=== PATIENT | female | born 1970 | race Caucasian/White ===

== ENCOUNTER 2023-08-09 05:21 | Observation (INO) ==
--- NOTE | 2023-07-12 12:04 | PAT Medication Instructions ---
Medication Instructions Date of Service July 12, 2023 Home Medications folic acid 1 mg tablet 1 mg PO QAM pyridoxine (vitamin B6) 50 mg tablet 50 mg PO QAM buspirone 10 mg tablet 10 mg PO BID conjugated estrogens 1.25 mg tablet (Premarin) 1.25 mg PO QPM cyanocobalamin (vitamin B-12) 1,000 mcg tablet (Vitamin B-12) 1,000 mcg PO WK multivitamin 1 tab PO QAM omeprazole 40 mg capsule,delayed release 40 mg PO BID sertraline 50 mg tablet 50 mg PO QAM potassium 99 mg tablet 99 mg PO BID zinc 1 tab PO BID ASK your prescriber and surgeon conjugated estrogens 1.25 mg tablet (Premarin) 1.25 mg PO QPM DO NOT take the morning of surgery folic acid 1 mg tablet 1 mg PO QAM pyridoxine (vitamin B6) 50 mg tablet 50 mg PO QAM cyanocobalamin (vitamin B-12) 1,000 mcg tablet (Vitamin B-12) 1,000 mcg PO WK multivitamin 1 tab PO QAM potassium 99 mg tablet 99 mg PO BID zinc 1 tab PO BID Take morning of surgery With a small sip of water, OTHERWISE NOTHING TO EAT OR DRINK AFTER MIDNIGHT: buspirone 10 mg tablet 10 mg PO BID omeprazole 40 mg capsule,delayed release 40 mg PO BID sertraline 50 mg tablet 50 mg PO QAM Take evening before surgery buspirone 10 mg tablet 10 mg PO BID omeprazole 40 mg capsule,delayed release 40 mg PO BID potassium 99 mg tablet 99 mg PO BID zinc 1 tab PO BID Other Notes If you have any questions please call us at [phone] or [phone] or [phone] or [phone]
--- NOTE | 2023-07-13 09:54 | Anesthesiology Consultation ---
Date of Service July 13, 2023 Assessment & Plan (1) Encounter for pre-operative examination: Chart Review Chart Review: Acceptable Risk for Surgery (pending heme visit 07/17/23 and PCP clearance 07/20/23) and Patient seen in Pre Admission Testing - [facility]waiting [facility]onc appt 07/17/23 - Awaiting PCP clearance (Dr. Rodas) 07/20/23 - Patient is NOT an ideal OPJ candidate (currently 23 hour obs) Per PAT appt on 07/13/23, no recent illness/disease exposures, illness related symptoms, or recent illness/disease positive tests. Will leave to surgeon's discretion if preop Covid testing needed Right TKA from uni-knee 05/01/18= Done under SAB at L3-4 with two attempts History Surgery Operation Date: 08/09/23 07:00 Proposed Procedures p Left Total Knee Arthroplasty - Micky Fink MD Height/Weight Height: 5 ft 2 in Weight: 72.5 kg Allergies Allergy/AdvReac Type Severity Reaction Status Date / Time trazodone Allergy Intermediate congestion Verified 07/12/23 10:17 desmopressin Allergy Mild THROAT Verified 07/12/23 10:17 SWELLS AND REDNESS - TOLERATES W/ BENADRYL Medications Home Medications Medication Instructions Recorded Confirmed Last Taken folic acid 1 mg tablet 1 mg PO QAM 05/02/22 07/12/23 04/29/23 pyridoxine (vitamin B6) 50 mg 50 mg PO QAM 05/02/22 07/12/23 04/29/23 tablet buspirone 10 mg tablet 10 mg PO BID 05/01/23 07/12/23 04/29/23 conjugated estrogens 1.25 mg 1.25 mg PO QPM 05/01/23 07/12/23 04/29/23 tablet (Premarin) cyanocobalamin (vitamin B-12) 1,000 mcg PO WK 05/01/23 07/12/23 04/29/23 1,000 mcg tablet (Vitamin B-12) multivitamin 1 tab PO QAM 05/01/23 07/12/23 04/29/23 omeprazole 40 mg capsule,delayed 40 mg PO BID 05/01/23 07/12/23 04/29/23 release sertraline 50 mg tablet 50 mg PO QAM 05/01/23 07/12/2323 potassium 99 mg tablet 99 mg PO BID 05/04/23 07/12/23 Unknown zinc 1 tab PO BID 05/04/23 07/12/23 Unknown Past Medical History Medical History Anemia Following with [facility] heme Last transfusion 06/18/23 Getting current iron infusions Anxiety Chronic pain History of COVID-19 2020, 2021 - symptoms fully resolved History of gastric ulcer 2020 or 2021 Osteoarthritis SBO (small bowel obstruction) hx of x 3 total, 05/01/23 [place] [facility] --> transferred to [place] for surgery. Thrombocytosis Will be following with [facility] heme 07/17/23 to discuss further Exercise / Class Metabolic Activity II 4-5 Yardwork/Stairs/Walk up hill (one flight of stairs - no chest pain or SOB ) Past Family History Family History Grandmother (Maternal) Breast cancer Grandfather (Maternal) Cancer Mother Clotting disorder Diabetes Sister Clotting disorder Other No pertinent family history Past Surgical History Surgical History H/O dilation and curettage H/O resection of small bowel x3. Most recent 05/02/23 SBO. 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 History of bunionectomy left great toe History of cholecystectomy History of colonoscopy History of esophagogastroduodenoscopy (EGD) History of partial knee replacement right History of repair of hiatal hernia History of tonsillectomy and adenoidectomy 1975 History of total knee replacement right > after the partial went bad Hx of gastric bypass [facility] - 2011 Hx of sigmoidoscopy Status post total abdominal hysterectomy 2004 Past Anesthesia History No Hx of Anesthesia Complications and No Family Hx of Anesthesia Complications History of PONV No Hx of PONV and Hx of Motion Sickness Social History Smoking Status: Never smoker Do You Dip or Chew Tobacco: No Hx Alcohol Use: Yes alcohol intake frequency: holidays/special occasions only Hx Substance Use: No substance use type: does not use Review of Systems - Most recent blood transfusion (06/18/23) Patient denies chest pain, shortness of breath, dyspnea on exertion, reflux, cough, wheezing, palpitations. No hx of seizures, stroke, DE, apnea/snoring. No hx of blood clots Physical Exam Vital Signs VITALS BP 118/76 P 69 TEMP 97.7 SP02 96% RESP 16 Constitutional no acute distress ENMT Mouth: no TMJ clicking Thyromental Distance: > or= 3.5 Finger Breadths (3.5) Mallampati Class: I Crowns to side teeth/molars Neck neck extension not limited Respiratory normal respiratory effort; no respiratory distress Auscultation: lungs clear to auscultation bilaterally; no wheezes Cardiovascular Rate/Rhythm: regular rate and regular rhythm Heart Sounds: no murmur Vessels: no carotid bruit Musculoskeletal Spine: no pain with cervical ROM Extremities: extremities normal to inspection Psychiatric Orientation: alert Lab Results Anesthesia Preop Results Results Anesthesia Widget: Na 136 mmol/L (136-145) 07/13/23 K 4.4 mmol/L (3.5-5.1) 07/13/23 Cl 103 mmol/L (98-107) 07/13/23 CO2 28 mmol/L (21-32) 07/13/23 BUN 13 mg/dl (6-23) 07/13/23 Creat 0.55 mg/dl (0.6-1.2) L 07/13/23 Glucose Level 83 mg/dl (70-99(Fasting)) 07/13/23 PT 10.3 Seconds (9.0-12.0) 07/13/23 PTT 26 Seconds (21-31) 07/13/23 INR 0.9 (0.9-1.1) 07/13/23 Urine Color Yellow 07/13/23 Urine Appearance Clear (Clear) 07/13/23 Urine pH 6.5 (4.5-7.5) 07/13/23 Urine Specific [place] 1.034 (1.000-1.030) H 07/13/23 Urine Protein Negative (Negative) 07/13/23 Urine Glucose (UA) Negative (Negative) 07/13/23 Urine Ketones Negative (Negative) 07/13/23 Urine Blood Negative (Negative) 07/13/23 Urine Nitrite Negative (Negative) 07/13/23 Urine Bilirubin Negative (Negative) 07/13/23 Urine Urobilinogen Negative (Negative) 07/13/23 Urine Leukocyte Esterase Negative (Negative) 07/13/23 Blood Type B Positive 07/13/23 Antibody Screen NEGATIVE 07/13/23 Testing Laboratory Results 07/10/23= WBC: 8.61 H/H: 11.3/38.1 PLATELETS: 749 (following with [facility] heme 07/17/23 to discuss thrombocytosis along with anemia) Electrocardiogram Date: 04/30/23 Findings: + NSR @ (69bpm) High QRS voltage may be normal variant or due to LVE When compared to EKG from November 05, 2022- no significant change was found per cardio Chest X-Ray Date: 07/13/23 FINDINGS: Lung volumes are normal. Lungs are clear. The hazy left upper lobe density on radiograph of May 01, 2023 has resolved. There is no pneumothorax or pleural effusion. Cardiac size is normal. Mediastinal contours are normal. There is no evidence for pulmonary edema. IMPRESSION: No acute cardiopulmonary findings.
--- NOTE | 2023-08-08 07:07 | History & Physical Report ---
Date of Service August 08, 2023 Assessment & Plan (1) Primary osteoarthritis of left knee: Plan: Treatment options discussed with the patient. They wish to proceed with surgery. Risks, benefits and alternatives to surgery including but not limited to infection, DVT, pain, stiffness, need for revision surgery, damage to blood vessels, damage to nerves, PE, , were discussed with the patient and they wish to proceed. Plan for left total knee arthroplasty scheduled for August 08 at [facility] with Dr. Fink. Plan on aspirin 81 mg twice daily for 1 month postop for DVT prophylaxis. Plan on outpatient physical therapy. All questions answered. Patient follow-up postop. History of Present Illness Chief Complaint: Left knee pain Primary Care Provider: Jeremiah Rodas DO 52-year-old female with past medical history significant for small bowel obstruction who presents with ongoing left knee pain. Pain is interfering with her daily activities. She has failed conservative measures and would like to proceed with knee replacement. She does have a previous right knee replacement. Patient denies headaches, sweats, fevers, chills, double vision, blurred vision, cough, sore throat, dysphagia, chest pain, sob, wheezing, n/v/d/c, numbness, tingling, fatigue, urinary symptoms, mood disorders. ROS positive for left knee pain and stiffness. Allergies Allergy/AdvReac Type Severity Reaction Status Date / Time trazodone Allergy Intermediate congestion Verified 07/12/23 10:17 desmopressin Allergy Mild THROAT Verified 07/12/23 10:17 SWELLS AND REDNESS - TOLERATES W/ BENADRYL Home Medications Medication Instructions Recorded Confirmed Type folic acid 1 mg tablet 1 mg PO QAM 05/02/22 07/12/23 History pyridoxine (vitamin B6) 50 mg 50 mg PO QAM 05/02/22 07/12/23 History tablet buspirone 10 mg tablet 10 mg PO BID 05/01/23 07/12/23 History conjugated estrogens 1.25 mg 1.25 mg PO QPM 05/01/23 07/12/23 History tablet (Premarin) cyanocobalamin (vitamin B-12) 1,000 mcg PO WK 05/01/23 07/12/23 History 1,000 mcg tablet (Vitamin B-12) multivitamin 1 tab PO QAM 05/01/23 07/12/23 History omeprazole 40 mg capsule,delayed 40 mg PO BID 05/01/23 07/12/23 History release sertraline 50 mg tablet 50 mg PO QAM 05/01/23 07/12/23 History potassium 99 mg tablet 99 mg PO BID 05/04/23 07/12/23 History zinc 1 tab PO BID 05/04/23 07/12/23 History Past Med/Surg History Medical History Anemia Following with [facility] Last transfusion 06/18/23 Getting current iron infusions Anxiety Chronic pain History of COVID-19 2020, 2021 - symptoms fully resolved History of gastric ulcer 2020 or 2021 Osteoarthritis SBO (small bowel obstruction) hx of x 3 total, 05/01/23 [place] [facility] --> transferred to [place] for surgery. Thrombocytosis Will be following with [facility] heme 07/17/23 to discuss further Surgical History H/O dilation and curettage H/O resection of small bowel x3. Most recent 05/02/23 SBO. 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 History of bunionectomy left great toe History of cholecystectomy History of colonoscopy History of esophagogastroduodenoscopy (EGD) History of partial knee replacement right History of repair of hiatal hernia History of tonsillectomy and adenoidectomy 1975 History of total knee replacement right > after the partial went bad Hx of gastric bypass [facility] - 2011 Hx of sigmoidoscopy Status post total abdominal hysterectomy 2004 Family History Grandmother (Maternal) Breast cancer Grandfather (Maternal) Cancer Mother Clotting disorder Diabetes Sister Clotting disorder Other No pertinent family history Social History Smoking Status: Never smoker Second Hand Exposure: No; Do You Dip or Chew Tobacco: No; Hx Alcohol Use: Yes Hx Substance Use: No Preferred Language: Tuvaluan Communication Ability: Effective Visual Impairment: No Limitations Regional Sales Engineer Required: No Beliefs That Will Affect Care: None Current Living Situation: Spouse current occupation: [employer] Feels Safe at Home: Yes during the past year weight has: remained stable Assistive Devices: Glasses Review of Systems All systems reviewed & are unremarkable except as noted in HPI & below Physical Exam Constitutional: well developed and well nourished; no acute distress Eyes: PERRL, conjunctivae normal, anicteric sclerae ENMT: external ear and nose normal, oropharynx normal Neck: trachea midline, no thyromegaly Respiratory: normal respiratory effort, lungs clear to auscultation Cardiovascular: RRR, no murmur, no edema Musculoskeletal: Left knee: Varus alignment. Mild effusion. Tenderness medial joint line. Positive Rita's. Stable valgus and varus stress test. Range of motion 0 to 130 degrees. Skin: no rashes, warm and dry Neurologic: patellar DTR's 2+ bilat, sensation intact Psychiatric: A+Ox3, euthymic affect Results & Data Diagnostic Findings Left knee radiographs demonstrate end-stage osteoarthritis, [id number] medial compartment there is periarticular osteophytes.
[~2023-08-09 05:21] MED LIST: General Order Problem(s) SCH
[2023-08-09] MEDS: ACETAMINOPHEN 500 MG TAB PO SCH ×2 (05:45→14:37)
[2023-08-09] MEDS: FAMOTIDINE 20 MG TAB PO SCH (05:46)
[2023-08-09] MEDS: METOCLOPRAMIDE HCL 10 MG TABLET PO SCH (05:46)
[2023-08-09] MEDS: GABAPENTIN 900 MG DOSE PO SCH (05:46)
[2023-08-09] MEDS: LR 60ML/HR IV SCH (05:46)
[2023-08-09] MEDS: LR 500ML BOLUS, THEN 15ML/HR IV SCH (05:46)
[2023-08-09] MEDS: CeleBREX 200 MG CAP PO SCH ×2 (05:46→20:24)
[2023-08-09] MEDS: dexAMETHasone**PF** 10 MG/ML VIAL IV SCH (05:47)
[2023-08-09] MEDS ORDERED: DexMEDEtomidine HCL IV 100 MCG/ML VIAL IV ONE (06:10)
[2023-08-09] MEDS ORDERED: LIDOCAINE 2% 2 ML VIAL/AMP(20MG/ML) INFIL ONE (06:21)
[2023-08-09] MEDS ORDERED: PROPOFOL IV EMULSION 10 MG/ML 20 ML VIAL IV ONE (06:21)
[2023-08-09] MEDS ORDERED: BUPIVACAINE 0.5 % 5 MG/1 ML PF 10ML VIAL ONE (06:24)
[2023-08-09] MEDS ORDERED: BUPIVACAINE 0.25% PF 30 ML VIAL ONE (06:24)
[2023-08-09] MEDS ORDERED: ATROPINE SULFATE 0.1 MG/ML 10ML SYR IV PRN (06:26)
[2023-08-09] MEDS ORDERED: ONDANSETRON INJ 2 MG/ML 2 ML VIAL IV PRN (06:26)
[2023-08-09] MEDS ORDERED: fentaNYL citrate PF 100 MCG/2 ML VIAL IV PRN (06:26)
[2023-08-09] MEDS ORDERED: ePHEDrine sulfate 50 MG/ML AMP IV PRN (06:26)
[2023-08-09] MEDS ORDERED: MIDAZOLAM HCL 1 MG/ML 2ML VIAL ONE ×2 (06:28→06:47)
[2023-08-09] MEDS ORDERED: fentaNYL citrate PF 100 MCG/2 ML VIAL ONE (06:30)
[2023-08-09] MEDS ORDERED: KETAMINE HCL 10MG/ML SYR ONE (06:49)
[2023-08-09] MEDS: TRANEXAMIC ACID 1,000 MG **IV Pre-op IV SCH (07:05)
--- NOTE | 2023-08-09 07:08 | History & Physical Bridge Note ---
Date of Service August 09, 2023 History & Physical Bridge Note I have examined the patient, reviewed the History & Physical and in the interval since the performance of the History & Physical I have noted the following changes of clinical significance: no changes noted
[2023-08-09] MEDS: ceFAZolin 2000MG 2,000 MG/15 ML SYR IV SCH (08:07)
[2023-08-09] MEDS: ORTHO JOINT ANESTHETIC ONE (08:08)
[2023-08-09] MEDS: TRANEXAMIC ACID 1,000 MG **IV Intra-op IV SCH (08:52)
[2023-08-09] MEDS: ROPIV 0.5% 246mg, Ketorolac 30mg, EPINEPHrine 0.5mg in NSS INFIL SCH (08:53)
--- NOTE | 2023-08-09 09:33 | Post Operative Brief Note ---
Immediate Post Op Note v1 Date of Surgery August 09, 2023 Pre & Post Diagnosis Operation Date: 08/09/23 07:00 Pre-Op Diagnosis: Left Knee Osteoarthritis Post-Op Diagnosis: Left Knee Osteoarthritis I identified the patient and participated in the time-out.: Yes Procedure Operation Date: 08/09/23 07:00 Actual Procedures p Left Total Knee Arthroplasty, lateral release, bossman and Acticoat superficial wound VAC application- Micky Fink MD Surgeon Micky Fink MD Energy Control Officer Garcia SUAREZ Estimated Blood Loss 5 Findings Consistent with Post-Op Diagnosis Specimens Bone cuts Drains Hemovac Drain (10 FR Dual luman) Anesthesia Type MAC Spinal Regional Complications none Disposition Disposition: Recovery Room Overlapping Procedure I was immediately available: during the entire case.
--- NOTE | 2023-08-09 09:45 | Operative Report ---
Post Operative Report Pre & Post Diagnosis Operation Date: 08/09/23 07:00 Pre-Op Diagnosis: Left Knee Osteoarthritis Post-Op Diagnosis: Left Knee Osteoarthritis I identified the patient and participated in the time-out.: Yes Procedure Operation Date: 08/09/23 07:00 Actual Procedures p Left Total Knee Arthroplasty, lateral release, bossman and Acticoat superficial wound VAC application- Micky Fink MD Surgeon Micky Fink MD Electric Motor Assembler And Tester Garcia SUAREZ Estimated Blood Loss 5 Findings Consistent with Post-Op Diagnosis Specimens Bone cuts Drains 2 Hemovac Anesthesia Type MAC Spinal Regional Complications none Disposition Disposition: Recovery Room Indications 49-year-old female with chronic progressive osteoarthritis in her left knee with extensive conservative management. Radiographs demonstrate [id number] medial compartment and also has patellofemoral osteoarthritis. Patient had 2 knee arthroplasty procedures on the right knee. Description of Procedure The patient was taken to the operating room and anesthetized under spinal MAC regional block. Patient was placed supine on the the operating table. A pneumatic tourniquet was placed about the left upper thigh. The knee exam demonstrated old arthroscopic scars moderate effusion 0 through 125 degrees range of motion no instability. The involved leg was elevated exsanguinated with Esmarch bandage and the pneumatic tourniquet was raised to 325 millimeters mercury. A longitudinal incision was made across the anterior knee. Skin flaps were elevated. An incision was made into the medial retinaculum and extended up into the mid third of the quadriceps tendon and extended down to the tibial tubercle. Intra-articular findings demonstrated medial compartment and patellofemoral osteoarthritis. Large peripatellar spurs. [id number]-allg medial compartment. The knee was exposed by excising cruciate ligaments and menisci. The infrapatellar fat pad was resected. The fat pad over the anterior femur at the upper aspect of the articular surface was resected for placement of the component in that area. A subperiosteal peel lateral release was performed around the patella. The [employer] Avubaney 2.0 total knee arthroplasty system was utilized for the procedure. The custom femoral cutting guide was pinned in position. The distal femoral cut was made. The size 4, 5 in 1 cutting block was placed. The anterior posterior and chamfer cuts were made. The knee was extended and a free hand cut technique was performed to the patella. The patella width was measured and the width was reproduced using a 32 symmetrical patella component. The excess lateral facet was beveled off to prevent any impingement. 3 drill holes are made for the patella component pegs. The tibia was then subluxed. The custom tibial cutting block was pinned in position and the proximal tibial cut was made with the oscillating saw. Flexion and extension gaps were balanced. Minor medial releases were required. The size 3 tibial trial was externally rotated in line with the tibial tubercle and pinned in position. The punch for the stem was used. The femoral trial was inserted and centered the notch cutting devices were used and the collet was placed. Tibial trials were used for the insert. The size 10 trial gave balanced ligaments through full range of motion. Patella tracking was assessed with range of motion. The patella tracked laterally so a lateral release was performed maintaining synovium intact and the patella tracked centrally afterward. The trials were removed. The Orthomix anesthetic cocktail was injected per protocol. The cut bone surfaces and soft tissue were copiously irrigated with pulsatile lavage saline solution. The final components were cemented with Refobacin cement. The final components were [employer]hew journey 2.0 posterior stabilized left femoral component, size 3 left tibial component, 10 mm left posterior stabilized tibial polyethylene and 32 mm symmetrical polyethylene patella. Xperience irrigation was placed over metal tray prior to polyethyle insertion. After the cement cured, the knee was then copiously irrigated with pulsatile lavage Xperience solution. 2 drains were brought out laterally connected to Hemovac. The quadriceps tendon and medial retinaculum were closed with interrupted [id number] #1 Vicryl sutures. The knee was taken through full range of motion and repair was secure. Knee range of motion was 0 through 135 degrees range of motion. the subcutaneous tissues were closed with 2-0 Vicryl sutures. The skin was closed with elisa. A bossman and Acticoat superficial wound VAC was applied. The tourniquet was let down and the patient had good capillary refill to the extremi ty. The patient tolerated the procedure well. My physician ice cream freezer assistant Garcia SUAREZ participated as certified surgical tech/first assistant and was integral part in all aspects of the procedure including prepping, draping, leg positioning, soft tissue retraction, instrument management and assisted in the closure , superficial wound VAC application and will participate in postoperative care the patient. I attest to the content of the Intraoperative Record and any orders documented therein. Any exceptions are noted below.
--- NOTE | 2023-08-09 09:54 | XRay Report ---
XR knee LT 1 or 2V routine HISTORY: 52 years-old Female Surgical Post Op left knee arthroplasty COMPARISON: None TECHNIQUE: 2 views of the left knee FINDINGS: Total joint arthroplasty with patellar resurfacing. Anterior midline skin elisa are noted along wit h expected postoperative soft tissue swelling with deep tissue air and surgical drainage catheter. No acute fracture or unexpected opaque foreign body. IMPRESSION: Total joint arthroplasty with expected postoperative changes. ACT 112: Negative or not required by law. The above report was generated using voice recognition software. It may contain grammatical, syntax o r spelling errors. Electronically signed by: Farrukh Callaway M.D. 08/09/2023 9:53 AM
--- NOTE | 2023-08-09 11:27 | Anesthesiology Progress Note ---
Date of Service August 09, 2023 Anesthesia Post Procedure Vital Signs Vital Signs: Temp Pulse Pulse Resp BP Pulse Ox O2 Del Method 08/09/23 11:00 36.6 C 80 17 120/75 93 Room Air 08/09/23 10:45 36.6 C 76 13 118/76 95 Room Air 08/09/23 10:30 36.6 C 70 15 132/83 96 Room Air 08/09/23 10:20 36.6 C 75 13 127/79 97 Room Air 08/09/23 10:10 75 17 134/83 100 Room Air 08/09/23 10:00 76 15 131/75 100 Oxymask 08/09/23 09:50 75 18 130/78 100 Oxymask 08/09/23 09:40 76 18 144/92 H 100 Oxymask 08/09/23 09:34 36.6 C 75 15 145/85 H 100 Oxymask 08/09/23 05:40 36.5 C 72 18 177/95 H 96 Room Air O2 Flow Rate 08/09/23 11:00 08/09/23 10:45 08/09/23 10:30 08/09/23 10:20 08/09/23 10:10 08/09/23 10:00 1 08/09/23 09:50 3 08/09/23 09:40 3 08/09/23 09:34 5 08/09/23 05:40 Transfer of Care Handoff Completed per policy Notes Mental Status: alert / awake / arousable Patient Amnestic to Procedure: Yes Nausea / Vomiting: adequately controlled Pain: adequately controlled Airway Patency, RR, SpO2: stable & adequate BP & HR: stable & adequate Hydration State: stable & adequate Neuraxial Anesthesia: was administered and sensory block is resolving Anesthetic Complications: no major complications apparent and Pt Satisfied with anesthetic care
[2023-08-09] MEDS ORDERED: MAGNESIUM HYDROXIDE SUSP 30 ML UDC PO PRN (12:34)
[2023-08-09] MEDS ORDERED: bisacodyL 10 MG SUPP PR PRN (12:34)
[2023-08-09] MEDS ORDERED: NALOXONE HCL 0.4 MG/1 ML VIAL/CARP IV PRN (12:34)
[2023-08-09] MEDS ORDERED: METOCLOPRAMIDE HCL INJ 5 MG/ML 2 ML VIAL IV PRN (12:34)
[2023-08-09] MEDS: SODIUM CHLORIDE 0.9% 1,000 ML IV SCH (13:21)
[2023-08-09] MEDS: ceFAZolin 1000MG 1,000 MG/7.5 ML SYR IV SCH (15:32)
[2023-08-09] MEDS: oxyCODONE HCL IR 5 MG TAB (IMMEDIATE RELEASE) PO PRN (15:33)
[2023-08-09] MEDS: HYDROmorphone INJ 0.5 MG/0.5 ML SYR IV PRN (18:12)
[2023-08-09] MEDS: busPIRone 5 MG TAB PO SCH (20:23)
[2023-08-09] MEDS: SERTRALINE HCL 50 MG TABLET PO SCH (20:23)
[2023-08-09] MEDS: PANTOprazole 40 MG TAB PO SCH (20:23)
[2023-08-09] MEDS: ASPIRIN 81 MG ECTAB PO SCH (20:24)
[2023-08-09] MEDS: SENNA 8.6 MG TAB PO SCH (20:25)
[2023-08-09] MEDS: DOCUSATE SODIUM 100 MG CAP PO SCH (20:25)
--- OUTSIDE RECORDS SUMMARY | 2023-08-09 22:07 | External Medical Summary | Summary of Care ---
Author Name Unknown Organization [facility] Address [address] [facility] [place] [address] Phone [phone] Care Team Providers Care Drilling Field Specialist Name Role Phone RodasSatinder rodasn Nicanor Primary Care Provider + [phone] Reason for Visit * Reason Onset Date Comments Test Results Lab 07/17/2023 Encounter Details Date Type Department Care Team (Late st Contact Info) Description 07/17/2023 Telephone Hematology/Oncology Treatment, [place] [address] [place] [address] Laura Bedoya MD [address] [place] [address] Test Results Lab Allergies Active Allergy Reactions Criticality Noted Date Comments Desmopressin 06/14/2004 flushing w/ rx and feeling throat was closing 2003 Trazodone Other (Please comment) 03/16/2015 Breathing difficulties documented as of this encounter (statuses as of 07/17/2023) Medications Medication Sig Dispensed Refills Start Date End Date Status VITAMIN B-6 100 MG OR TABS Take 1 Tablet by mouth in the morning. 0 10/07/2004 Active FOLIC ACID 800 MCG OR TABS Take 1 Tablet by mouth in the morning. 30 0 10/07/2004 Active MULTI VITAMIN/MINERALS PO TABS Take 1 Tablet by mouth daily. 0 Active vitamin b 12 (CYANOCOBALAMIN) 1000 MCG TABS Take 1 Tablet by mouth once a week. 0 Active Loratadine 10 MG Oral Tablet (CLARITIN)Indication s:Allergic rhinitis, unspecified seasonality, unspecified trigger TAKE 1 TABLET BY MOUTH EVERY DAY 30 Tab 5 02/18/2020 Active Additional Information Patient taking differently: 10 mg Oral Daily(AM), Informant: Patient, Reported on 09/26/2022 Vitamin E 100 UNIT Oral Capsule Take 1 Capsule by mouth in the morning. 0 Active Vitamin D3 10 MCG (400 UNIT) Oral Capsule Take 1 Capsule by mouth in the morning. 0 Active Polyethylene Glycol 3350 17 GM Oral Packet Take by mouth 17 g in the morning. 0 Active Sertraline HCl 50 MG Oral Tablet Take 1 Tablet by mouth in the morning. 0 Active busPIRone 7.5 MG OR TABS Take 10 mg by mouth in the morning and 10 mg before bedtime. 0 Active Docusate Sodium 100 MG Oral Capsule (Stool Softener) Take by mouth 1 Capsule in the morning AND 1 Capsule before bedtime. Take 1 capsule twice daily as needed. 10 Capsule 0 10/28/2021 Active Additional Information Patient not taking.Reported on 09/26/2022 Zinc 100 MG Oral Tablet Take by mouth . 0 Active Copper Caps 2 MG Oral Capsule (copper gluconate) Take by mouth. 0 Active Potassium 99 MG Oral Tablet Take 1 Tablet by mouth in the morning. 0 Active Premarin 1.25 MG Oral Tablet Take 1 Tablet by mouth in the morning. 0 08/18/2022 Active Omeprazole 40 MG Oral Capsule Delayed Release (PriLOSEC) Take 1 Capsule by mouth 2 times a day with morning and evening meals. 180 Capsule 3 09/26/2022 Active Additional Information Patient taking differently:40 mg OralDaily(AM), Reported on 01/05/2023 Wegovy 0.5 MG/0.5ML Subcutaneous Solution Auto-injector (Semaglutide-Weight Management) Inject under the skin once a week. 0 Active Sucralfate 1 GM/10ML Oral Suspension (Carafate) Take 10 mL by mouth 3 times a day as needed (abdominal pain/nausea). 500 mL 2 01/05/2023 Active Ondansetron 4 MG Oral Tablet Disintegrating (Zofran)Indications: PUD (peptic ulcer disease) Place 1 Tablet on tongue every 8 hours as needed for Nausea or Vomiting. dissolve on tongue. 20 Tablet 5 03/29/2023 Active oxyCODONE HCl 5 MG Oral Tablet (Oxy IR) Take 1 Tablet by mouth every 4 hours as needed for Pain, Moderate. 5 Tablet 0 04/30/2023 Active documented as of this encounter (statuses as of 07/17/2023) Active Problems Problem Noted Date Diagnosed Date Other iron deficiency anemias 04/17/2022 Pleural effusion 10/28/2021 Abdominal pain, RUQ (right upper quadrant) 10/24 Other specified anemias 10/24/2021 Screen for colon cancer 05/08/2020 Overview: 03/2020 Discussed colonoscopy Has had 10/2015 colonoscopy but suboptimal prep .Will postpone d/t covid and schedule when safe in 2020 Encounter for screening mammogram for breast can cer 05/08/2020 Overview: Neg mammo 12/11/2019 Advance directive discussed with patient 020 Overview: 04/15/2020 Discussed advance directive and living will 1 POA Farrukh 2 POA mother Liz Nunez Has brochure NSAID long-term use 10/28/2019 Persistent disorder of initiating or maintaining sleep 10/30/2018 Overview: 03/2020 increase mirtazapine to 15 02/2020 start mirtazapine 7.5 10/23/2019 recent increase problems with waking up . Previously evaluated by Sleep med 07/2018 for problems with sleep maintenance, hypersomnia and suspicion of sleep apnea. While the home PSG done last yr appeared negative for RL, Will facilitate a telemed office visit with sleep med to follow on her sleep maintenance issues. History of splenectomy 12/19/2016 History of repair of hiatal hernia 12/19/2016 Vitamin B 12 deficiency 03/03/2014 Overview: 01/26/2019 Given that she has been taking oral vit B12 1000 mcg daily and her level is low, will give her B12 shots 1mg IM weekly x 4 then q 1 mth . Diverticulosis of colon 06/26/2013 History of small bowel obstruction 06/26/2013 Status post bariatric surgery 03/05/2012 Knee joint replacement status 08/31/2011 Overview: Right knee , 4-2010 Hx of skin malignancy 05/04/2011 Overview: Hx Basal Cell Carcinoma left upper chest Dyslipidemia, goal LDL below 130 04/07/2010 Allergic rhinitis 01/18/2009 ADVANCE DIRECTIVE INFORMATION 05/03/2005 Overview: No, Advance Directive brochure given to patient at prior appointment. 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 Coagulation disorder 06/14/2004 Overview: platelet dysfunction History of migraine 01/08/2002 Overview: 04/15/2020 no Sx 10/30/2018 no sign headaches documented as of this encounter (statuses as of 07/17/2023) Resolved Problems Problem Noted Date Diagnosed Date Resolved Date Acute hyponatremia 10/25/2021 2 Hiatal hernia 09/22/2016 12/19/2016 Splenic cyst 09/22/2016 12/19/2016 MEDICATION USE AGREEMENT 03/16/2015 Overview: Last updated H/O gastric bypass 03/03/2014 7 Abnormal results of liver function studies 03/03/2014 12/19/2016 Red Lesion low L anterior neck=A 04/24/2011 10/16/2017 Obesity, Class II, BMI 35-39 .9, isolated (see actual BMI) 10/06/2009 09/19/2012 Impaired fasting glucose 10/06/2009 Diverticulitis of colon 06/28/200905/30 Overview: partila colon resection Superficial bruising 01/22/2004 007 PREMENSTRUAL TENSION 07/29/2002 007 Other acne 01/08/2002 09/20/2006 documented as of this encounter (statuses as of 07/17/2023) Immunizations Name Administration Dates Next Due HEP A - Hepatitis A (Adult > 18 yrs) 03/26/2019, 09/20/2018 HIB PRP-T, 4 dose (ActHib) 09/24/2016 Meningococcal B, 2/3-Dose Se misa (TRUMENBA) 04/02/2018,11/30/2017,09/29/2017 Meningococcal Conjugate Vacc ine (Menactra/Menveo) 09/24/2016 Meningococcal MCV4O Conjugat e Vaccine (Menveo) 12/02/2018 PPD 08/06/2014 Pneumococcal Conjugate Vacc, 13 Valent (Prevnar) 09/24/2016 Pneumococcal Polysaccharide PPV23 (Pneumovax) 09/29/2017 Seasonal Influenza Intranasal 06/18/2012(Deferre d: Patient Refused) TDAP (age 10 and older)(Boostrix) 12/19/2016 TDAP (age 11 and older)(Adacel) 09/20/2006 Typhoid VICPs Parenteral, 2 years and above (Typhim ) 09/20/2018 Zoster Vaccine Recombinant (Shingrix) 04/15/2020 documented as of this encounter Social History Tobacco Use Types Packs/Day Years Used Date Smoking Tobacco: Never Smokeless Tobacco: Never Alcohol Use Standard Drinks/Week Comments Not Currently 7 (1 standard drink = 0.6 oz pur e alcohol) PHQ-2 Answer Date Recorded PHQ-2 Score 0 07/31/2019 Sex and Gender Information Value Date Recorded Sex Assigned at Female 10/30/2018 8:42 AM EDT Gender Identity Female 10/30/2018 8:42 AM EDT Sexual Orientation Straight 10/30/2018 8: 42 AM EDT Job Start Date Occupation Industry Not on file Not on file Not on file documented as of this encounter Functional Status Functional Status Response Date of Assess ment Are you deaf or do you have serious difficulty h earing? No 10/24/2021 Are you blind or do you have serious difficulty seeing, even when wearing glasses? No 10/24/2021 Do you have serious difficul ty walking or climbing stairs? (5 years old or older) No 10/24/2021 Do you have difficulty dress ing or bathing? (5 years old or older) No 10/24/2021 Because of a physical, menta l, or emotional condition, do you have difficulty doing errands alone such as visiting a doctor s office or shopping? (15 years old or older) No 10/25/19 Cognitive Status Response Date of Assessm ent Because of a physical, menta l, or emotional condition, do you have serious difficulty concentrating, remembering, or making decisions? (5 years old or older) No 10/24/2021 documented as of this encounter Miscellaneous Notes * Telephone Encounter - Bhargavi River RN - 07/17/2023 4:09 PM EST MyG sent. * Telephone Encounter - Bhargavi River RN - 07/17/2023 4:09 PM EST ----- Message from Laura Bedoya MD sent at 07/17/2023 2:54 PM EST ----- Hemoglobin is stable at 11.2 and platelet count decreased to 539. For now will continue monitor clinically. documented in this encounter Plan of Treatment Upcoming Encounters Date Type Department Care Team (Late st Contact Info) Description 10/12/2023 10:30 AM EDT Laboratory Laboratory, [facility] [address] [place] [phone] [facility], Lab [address] [place] [address] 10/15/2023 9:00 AM EDT [facility] [address] [place] [phone] Laura Bedoya MD [address] [place] [address] Scheduled Procedures Name Priority Associated Diagnoses Date/Ti me COLONOSCOPY FLEXIBLE PROXIMA L DIAGNOSTIC Recall History of colonic polyps Health Maintenance Due Date Last Done Comments Hepatitis B (1 of 3 - 19+ 3-dose series) 1988 Meningitis B Vaccine (Bexsero/Trumemba) (4 of 5 - Increased Risk Trumenba 3-dose series) 04/02/2019 04/02/2018, 11/30/2017, 09/29/2017 Zoster Vaccines (2 of 2) 06/10/2020 04/15/2020 Depression Screening 07/28/2020 07/29/2019 COVID-19 Vaccine (1 - 2022- season) 2023 Influenza Vaccine (FLU shot) (#1) 2023 Mammogram 03/19/2024 03/19/2023, 12/27, 01/11/2021, Additional history exists COLONOSCOPY-EVERY 3 YRS AGES 18-100 04/19/2025 04/19/2022, 04/19/2022, 03/08/2022, Additional history exists Diabetes Screening 07/10/2026 07/10/2023, 1 07/01/2022, 01/02/2023, Additional history exists MENINGOCOCCAL (MENACTRA/MENVEO) (3 - Risk 2-dose series) 08/25/2026 08/25/2021, 12/02/2018, 12/02/2018, Additional history exists DTaP,Tdap,and Td Vaccines (3 - Td or Tdap) 12/19/2026 12/19/2016, 09/20/2006 Lipid Panel 12/28/2026 12/28/2021, 01/2017, 09/08/2015, Additional history exists Pneumococcal Vaccine: Pediatrics (0 to 5 Years) and At-Risk Patients (6 to 64 Years) (4 of 4 - PPSV23 or PCV20) 2034 08/25/2021, 09/29/2017, 09/24/2016 Fecal Occult Blood Test Discontinued 05/03/2005 Hepatitis C Screening Completed 03/16/2015, 014 Colonoscopy Discontinued 04/19/2022, 03/29, 03/08/2022, Additional history exists Colorectal Cancer Screening Discontinued Cologuard Discontinued GARDASIL-HPV IMMUNIZATION SERIES Aged Out No longer eligible based on patient's age to complete this topic Sigmoidoscopy Discontinued documented as of this encounter Medical Devices Implanted Type Area Slab Worker Device Identifier Shelf Expiration Date Model / Serial / Lot Duraclip 16mm Xlg Repostn - [id number] Implanted:Qty: 1 on 04/19/2022 by Ab Moreno DO at ENDOSCOPY [facility] [facility] [id number] 11/27/2023 [id number] [id number] / / [id number] documented as of this encounter Advance Directives Latest Code Status on File Code Status Date Activated Date Inactivated Comments Full Code 10/24/2021 5:02 PM 10/28/2021 6:28 PM This o rder reflects the patients wishes and were consensually agreed upon. Question Answer Comments Discussion of Advance Directives occurred with: Patient Code Status History Code Status Date Activated Date Inactivated Comments Full Code 10/24/2021 5:02 PM 10/24/2021 5:02 PM This order reflects the patients wishes and were consensually agreed upon. Question Answer Comments Discussion of Advance Directives occurred with: Patient Full Code 09/22/2016 2:46 PM 09/24/2016 5:02 PM This order reflects the patients wishes and were consensually agreed upon. Full Code 09/22/2016 9:29 AM 09/22/2016 2:46 PM Question Answer Comments Discussion of Advance Directives occurred with: Not Discussed Does the patient have a Living Will? No Does the patient have Health Care Power of Biostatistician? No Care Teams Drilling Field Specialist Relationship Specialty Start Date End Date [facility] Rodas [facility] [address] [facility] [place] [address] PCP - General Family Medicine 12/17/20 documented as of this encounter
--- OUTSIDE RECORDS SUMMARY | 2023-08-09 22:07 | External Medical Summary | Summary of Care ---
Author Name Unknown Organization [facility] Address [address] [facility] [place] [address] Phone [phone] Care Team Providers Care Aircraft Captain Name Role Phone RodasJeremiah rodas Primary Care Provider [phone] Reason for Visit * Reason Comments Follow Up F/U Encounter Details Date Type Department Care Team (Late st Contact Info) Description 07/17/2023 12:30 PM EST Office Visit Hematology/Oncology [facility] Ignacia [place] [address] [facility] [place] [phone] Laura Bedoya MD [address] [facility] [place] [address] Iron deficiency anemia, unspecified iron deficiency anemia type* Allergies Active Allergy Reactions Criticality Noted Date [...] reductase mutation 2004 Overview: heterozygous for both [id number] and [id number] Coagulation disorder 06/14/2004 Overview: platelet dysfunction History [...] on file documented as of this encounter Last Filed Vital Signs Vital Sign Reading Time Taken Comments Blood Pressure 156/94 07/17/2023 12:58 PM EST Pulse 85 07/17/2023 12:58 PM EST Temperature 36.3 C (97.4 F) 07/17/2023 12:[address] Respiratory Rate 18 07/17/2023 12:58 PM EST Oxygen Saturation 96% 07/17/2023 12:58 PM EST Inhaled Oxygen Concentration - - Weight 72.7 kg (160 lb 4.8 oz) 07/17/2023 12:58 PM EST Height - - Body Mass Index 29.32 11/05/2022 9:45 PM EDT documented in this encounter Functional Status Functional Status Response [...] No 10/24/2021 documented as of this encounter Progress Notes * Laura Bedoya MD - 07/17/2023 12:39 PM EST Outpatient Consult Note Data Source: Patient, Epic record. Data Source: Patient, Epic record. 07/17/2023 12:39 PM Gabriela Cruz [id number] 52 year old Patient Encounter: HEMATOLOGY/ONCOLOGY [facility] Cancer Diagnosis: Iron deficiency Anemia, status post gastric bypass surgery Current Treatment: Observation She received monoferric iron infusion on 06/27/2023 Previous Treatment: Venofer. Received last dose on 05/26/2022 Oncologic History : 52 - year old female with past medical history significant for Tri-en-Y gastric bypass in 2011, anxiety, HLD, GERD, bleeding disorder/platelet storage pool disorder, MTHFR with normal homocystine was referred for evaluation of anemia. She is complaining of on and of episode of abdominal and chest pain. She was admitted to the hospital and discharged on 10/28/2021 with complaint of black stool and was found to have low hemoglobin and elevated platelet counts. Abdominal pain through the hospitalization was controlled with tramadol, IV ppi followed by oral omeprazole and on day of discharge thepatient has minimal pain. The CT also notable for small pleural effusion on the right side that could be also a source of her pain. Urine culture was positive for E coli. The patient was sent home with antibiotics for the urinary tract infection. History is also significant for multiple small-bowel obstructions s/p lysis of adhesions in 2013 and 2014, cholecystectomy, hysterectomy, hiatal hernia repair and ulcers of the remnant stomach, splenectomy. She was following Dr. Kirkland and received 2 doses of iron infusion with improvement in the hemoglobin level. She was seen again in the ED on 03/30/2022 with complaint of pain and black stool. Her stool color is back to normal now. CT scan of the abdomen pelvis was done which revealed mild thickening of the bladder wall may reflect incomplete distention, no evidence of acute abnormality and resolution of the previously demonstrated small amount of ascites. She also had chest x-ray done which was negativefor any acute finding. 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 She also has platelet dysfunction characterized by a prolonged bleeding time, abnormal PFA, plateletaggregations. Her von Willebrand studies were normal. Her platelet electron microscopy showed decreased dense granules consistent with Storage Pool she was seen by furniture restorer Dr. Clarke Nash and he recommend preoperative DDAVP, given slowly with benedryl as a premedication. History is also significant for gastric bypass surgery which was done in 2011. Last endoscopy was done on 03/08/2022 and it revealed normal esophagus with Tri-en-Y gastrojejunostomy with gastrojejunal anastomosis characterized by an intact staple line. No ulcer. She also had colonoscopy done but the preparation of colon was inadequate with stool in the entire colon. Recent CBC was done on 03/30/2022 which shows WBC count of 8.37, hemoglobin 9.3 and platelet count 451. Creatinine was 0.6 and the rest of the electrolytes and LFTs were within normal limit. Ferritinwas 75 with normal iron screen. She is complaining of episode of chest and abdominal pain. She also has episode of nausea but no vomiting. She denies any fever, bleeding, bruising, change in the bowel habits, fever, night sweats, weight loss. She denies smoking and drinks socially. Family history significant for mother and sister with history of DVT. Maternal grandmother was diagnosed breast and stomach Interval History: She received last iron infusion on 06/27/2023 because of low ferritin (2.5) and iron level with thehigh iron binding capacity. She recently had surgery done for the bowel obstruction. She underwent exploratory laparotomy with lysis of adhesions, small-bowel resection, release of small-bowel obstruction on 05/02/2023. Tissue pathology showed Small bowel, resection: Small bowel with focal serosal scarring.Viable resection margins. Overall clinically she is feeling better and stronger without any new symptoms complain. No episodes of bleeding. Denies any headache, dizziness, nausea, vomiting, chest pain, palpitation abdominal pain or distention. LABS/IMAGING: Results for orders placed or performed in visit on 07/10/23 COMPREHENSIVE METABOLIC PANEL Result Value Ref Range BUN 10 6 - 20 mg/dL Creatinine 0.6 0.5 - 1.0 mg/dL Estimated Glomerular Filtration Rate >90 >=60 mL/min Sodium 138 135 - 146 mmol/L Potassium 5.2 (H) 3.5 - 5.1 mmol/L Chloride 104 98 - 107 mmol/L CO2 25 22 - 32 mmol/L Anion Gap 9 7 - 15 mmol/L Glucose 92 70 - 120 mg/dL Albumin 3.8 3.8 - 5.0 g/dL AST 17 10 - 35 U/L Alkaline Phosphatase 99 35 - 130 U/L Bilirubin, Total 0.2 <=1.2 mg/dL Calcium 9.0 8.4 - 10.2 mg/dL Protein 6.3 6.0 - 8.3 g/dL ALT 14 10 - 35 U/L FERRITIN Result Value Ref Range Ferritin 475 (H) 13 - 150 ng/mL IRON SCREEN, INCLUDING TIBC Result Value Ref Range Iron 61 33 - 151 ug/dL Iron Binding Capacity 400 250 - 425 ug/dL Transferrin Saturation Percent 15 15 - 55 % CBC Result Value Ref Range WBC 8.61 4.00 - 10.80 K/uL RBC 4.53 3.85 - 5.15 M/uL HGB 11.3 (L) 12.0 - 15.3 g/dL HCT 38.1 36.0 - 45.2 % MCV 84.1 81.5 - 97.5 fL MCH 24.9 27.0 - 34.0 pg MCHC 29.7 32.0 - 36.0 g/dL RDW 26.9 11.5 - 15.5 % PLT 749 (H) 140 - 400 K/uL MPV 9.6 6.6 - 11.1 fL nRBCs 0 <=0 /100 WBCs DIFFERENTIAL, AUTOMATED Result Value Ref Range WBC 8.61 4.00 - 10.80 K/uL Neutrophils % 53.0 40.0 - 75.0 % Lymphocytes % 32.6 18.0 - 42.0 % Monocytes % 9.6 1.0 - 11.0 % Eosinophils % 2.9 0.0 - 6.0 % Basophils % 1.6 0.0 - 2.0 % Immature Granulocytes % 0.3 0.0 - 2.0 % Absolute Neutrophils 4.55 1.80 - 7.70 K/uL Absolute Lymphocytes 2.81 1.00 - 4.80 K/ul Absolute Monocytes 0.83 0.00 - 1.10 K/uL Absolute Eosinophils 0.25 0.00 - 0.70 K/uL Absolute Basophils 0.14 0.00 - 0.20 K/uL Absolute Immature Granulocytes 0.03 0.00 - 0.20 K/uL *Note: Due to a large number of results and/or encounters for the requested time period, some results have not been displayed. A complete set of results can be found in Results Review. Recent blood test were done on 07/10/2023 which shows WBC count of 8.6, hemoglobin 11.3 and platelet count 749. Ferritin level is 474 with ferritin level is 474 with normal iron screen. REVIEW OF SYSTEMS: General: No Fever, chills, night sweats, or weight loss. HEENT: No change in visual acuity, blurred or double vision. No epistaxis, facial pain, nasal discharge or change in hearing. Denies dysphagia, no muscosal ulceration, or sores noted. Cardiovascular: No chest pain, MELO, or palpitations Respiratory: No shortness of breath, cough, hemoptysis, or pleuritic chest pain Gastrointestinal: No abdominal pain, nausea, vomiting, diarrhea, rectal pain or bleeding Genitourinary: Denies Hematuria or dysuria Musculoskeletal: Joint pain Skin: No skin rash or lesions noted Neurologic: No numbness, weakness, neuropathic pain or change in cognitive function Psychiatric: No vegetative signs of depression Endocrine: No symptoms of hypothyroidism or hyperglycemia Hematologic: No bleeding or lymph nodes noted As mentioned above, all of the systems were reviewed in full and are unremarkable. 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 0 FOLIC ACID 800 MCG OR TABS Take 1 Tablet by mouth in the morning. 30 0 MULTI VITAMIN/MINERALS PO TABS Take 1 Tablet by mouth daily. vitamin b 12 (CYANOCOBALAMIN) 1000 MCG TABS Take 1 Tablet by mouth once a week. Loratadine 10 MG Oral Tablet (CLARITIN) TAKE 1 TABLET BY MOUTH EVERY DAY (Patient taking differently: Take 1 Tablet by mouth in the morning.) 30 Tab 5 Vitamin E 100 UNIT Oral Capsule Take 1 Capsule by mouth in the morning. Vitamin D3 10 MCG (400 UNIT) Oral Capsule Take 1 Capsule by mouth in the morning. Polyethylene Glycol 3350 17 GM Oral Packet Take by mouth 17 g in the morning. (Patient not taking: Reported on 09/26/2022) Sertraline HCl 50 MG Oral Tablet Take 1 Tablet by mouth in the morning. busPIRone 7.5 MG OR TABS Take 10 mg by mouth in the morning and 10 mg before bedtime. Docusate Sodium 100 MG Oral Capsule (Stool Softener) Take by mouth 1 Capsule in the morning AND 1 Capsule before bedtime. Take 1 capsule twice daily as needed. (Patient not taking: Reported on 09/26/2022) 10 Capsule 0 Zinc 100 MG Oral Tablet Take by mouth . Copper Caps 2 MG Oral Capsule (copper gluconate) Take by mouth. Potassium 99 MG Oral Tablet Take 1 Tablet by mouth in the morning. Premarin 1.25 MG Oral Tablet Take 1 Tablet by mouth in the morning. Omeprazole 40 MG Oral Capsule Delayed Release (PriLOSEC) Take 1 Capsule by mouth 2 times a day withmorning and evening meals. (Patient taking differently: Take 1 Capsule by mouth in the morning.) 180 Capsule 3 Wegovy 0.5 MG/0.5ML Subcutaneous Solution Auto-injector (Semaglutide-Weight Management) Inject under the skin once a week. Sucralfate 1 GM/10ML Oral Suspension (Carafate) Take 10 mL by mouth 3 times a day as needed (abdominal pain/nausea). 500 mL 2 Ondansetron 4 MG Oral Tablet Disintegrating (Zofran) Place 1 Tablet on tongue every 8 hours as needed for Nausea or Vomiting. dissolve on tongue. 20 Tablet 5 oxyCODONE HCl 5 MG Oral Tablet (Oxy IR) Take 1 Tablet by mouth every 4 hours as needed for Pain, Moderate. 5 Tablet 0 No current facility-administered medications for this visit. Social History Tobacco Use Smoking status: Never Smokeless tobacco: Never Vaping Use Vaping Use: Never used Substance Use Topics Alcohol use: Not Currently Alcohol/week: 7.0 standard drinks of alcohol Types: 7 5 oz of wine per week Drug use: No Review of patient's allergies indicates: Allergen Reactions Desmopressin flushing w/ rx and feeling throat was closing 2003 Trazodone Other (Please comment) Breathing difficulties PHYSICAL EXAMINATION: General Appearance: Healthy appearing patient in no acute distress LMP 04/17/2005 Vitals reviewed. HEENT: No oral or pharyngeal masses, ulceration or thrush noted, no sinus tenderness. Neck is supple with no thyromegaly or JVD noted. Lymph Nodes: No lymphadenopathy noted in the occipital, pre and post auricular, cervical, supra andinfraclavicular, axillary, epitrochlear, inguinal, and popliteal region. Lungs/Thorax: Clear to auscultation, no accessory muscles of respiration being used. Heart: Regular rate and rhythm, normal S1, S2 Abdomen: Soft, nontender, bowel sounds present, no appreciable hepatosplenomegaly, no palpable masses Extremeties: Good pulses bilaterally, no peripheral edema. ASSESSMENT: 52 year old female with past medical history significant for Tri-en-Y gastric bypass in 2011, anxiety, HLD, GERD, bleeding disorder/platelet storage pool disorder, MTHFR with normal homocystine was referred for evaluation of anemia. She had episode of anemia and was treated with 2 doses of iron infusion. Now she recently presented to the hospital with complaint of abdominal pain and black stool.She had CT scan done which was negative and chest x-ray was also reported negative. Now her stools are back to normal color. She continues to complain of episodes of pain. Patient with history of gastric bypass surgery are at risk for anemia because of the issues with absorption of iron and others including B12, folic acid, arsenic and copper. She had upper endoscopy and colonoscopy done on 04/19/2022 and 04/14/2022 which were negative. There was a polyp removed from the colon which was consistent with tubular adenoma, Tri-en-Y gastrojejunostomy with gastrojejunal anastomosis characterized by healthy appearing mucosa. She recently was admitted with bowel obstruction had surgery done. Now clinically she is feeling better. She also received iron infusion on 06/27/2023 with improvement in the hemoglobin level. There was also increase in the platelet counts most likely reactive. I will repeat her CBC today to followon the hemoglobin and platelet counts. She is also scheduled for the knee surgery on 08/09/2023. If her blood counts are in acceptable range, there has no contraindication to proceed with surgery. Discussed with the patient in detail about the diagnosis and reviewed all the available blood test result with her. PLAN: CBCD will be done today. She will return clinic for follow-up in 3 months with CBC, CMP, ferritin iron screen. The patient voiced understanding of all of the above. All questions and concerns were addressed in an apparently satisfactory manner. Laura Bedoya MD (This note was completed using the dictation program Fluency Direct. As such, there may be misspellings, word substitutions, or other variations that should not change the essence of the clinical content of this encounter note. If there is need for further clarification, please direct questions to me.) documented in this encounter Nursing Notes * Grisel Matson LPN - 07/17/2023 12:58 PM EST Patient identifed by name and birthdate Do you have any concerns about pain management for today's visit? No Living Will or Advance Directive for Health Care as noted on the problem list. [facility] is a way you can talk to your provider on line through e-mail. Would you like to sign up? I can activate it for you? NO Filed Vitals: 07/17/23 1258 BP: 156/94 Pulse: 85 Resp: 18 Temp: 36.3 C (97.4 F) TempSrc: Tympanic SpO2: 96% Weight: 72.7 kg (160 lb 4.8 oz) Patient was instructed to not get up on the exam table/exam chair until directed and assisted by their provider; patient is to remain seated in the chair/ wheelchair/ exam table/ exam chair for fall prevention and safety reasons. Patient is aware to have assistance to step down off exam table/exam chair with personnel. Patient voiced full comprehension of instructions. documented in this encounter Plan of Treatment Upcoming Encounters Date Type Department Care Team (Late st Contact Info) Description 10/12/2023 10:30 AM EDT Laboratory Laboratory, [address] [phone] [facility], Lab [address] [place] [id number] 10/15/2023 9:00 AM EDT Office Visit Hematology/Oncology Denisse Beth [place] [address] [facility] [place] [phone] Laura Bedoya MD [address] [facility] [place] [address] Scheduled Orders Name Type Priority Associated Diagnoses Orde r Schedule CBC WITH WBC DIFFERENTIAL Lab Routine Iron deficiency anemia, unspecified iron deficiency anemia type Expected: 10/08/2023, Expires: 03/17/2024 COMPREHENSIVE METABOLIC PANEL Lab Routine Iron deficiency anemia, unspecified iron deficiency anemia type Expected: 10/08/2023, Expires: 03/17/2024 FERRITIN Lab Routine Iron deficiency anemia, unspecified iron deficiency anemia type Expected: 10/08/2023, Expires: 03/17/2024 IRON SCREEN, INCLUDING TIBC Lab Routine Iron deficiency anemia, unspecified iron deficiency anemia type Expected: 10/08/2023, Expires: 03/17/2024 Scheduled Procedures Name Priority Associated Diagnoses Date/Ti [...] Screening 07/28/2020 07/29/2019 COVID-19 Vaccine (1 - 2022-24 season) 2023 Influenza Vaccine (FLU shot) (#1) [...] this encounter Medical Devices Implanted Type Area Training Development Manager Device Identifier Shelf Expiration Date Model / Serial / Lot Duraclip 16mm Xlg Repostn - [id number] Implanted:Qty: 1 on 04/19/2022 by Ab Moreno DO at [facility]OS[facility] [id number] 11/27/2023 [id number] [id number] / / [id number] documented as of this encounter Procedures Procedure Name Priority Date/Time Associated Diagnosis Comments DIFFERENTIAL, AUTOMATED Routine 07/17/2023 1:12 PM EST Iron deficiency anemia, unspecified iron deficiency anemia type CBC Routine 07/17/2023 1:12 PM EST Iron deficiency anemia, unspecified iron deficiency anemia type CBC Routine 07/17/2023 1:12 PM EST Iron deficiency anemia, unspecified iron deficiency anemia type documented in this encounter Results * (ABNORMAL) DIFFERENTIAL, AUTOMATED (07/17/2023 1:12 PM EST) WBC 7.42 4.00 - 10.80 K/uL 07/17/2023 1:16 PM EST [facility] 56-02 Neutrophils % 43.1 40.0 - 75.0 % 07/17/2023 1:16 PM EST [facility] 56-02 Lymphocytes % 39.1 18.0 - 42.0 % 07/17/2023 1:16 PM EST [facility] 56-02 Monocytes % 12.9(H) 1.0 - 11.0 % 07/17/2023 1:16 PM EST [facility] 56-02 Eosinophils % 3.4 0.0 - 6.0 % 07/17/2023 1:16 PM EST [facility]02 Basophils % 1.5 0.0 - 2.0 % 07/17/2023 1:16 PM EST [facility] 56-02 Absolute Neutrophils 3.20 1.80 - 7.70 K/uL 07/17/2023 1:16 PM EST [facility] 56-02 Absolute Lymphocytes 2.90 1.00 - 4.80 K/ul 07/17/2023 1:16 PM EST [facility] 56-02 Absolute Monocytes 0.96 0.00 - 1.10 K/uL 07/17/2023 1:16 PM [facility] 56-02 Absolute Eosinophils 0.25 0.00 - 0.70 K/uL 07/17/2023 1:16 PM [facility] 56- Absolute Basophils 0.11 0.00 - 0.20 K/uL 07/17/2023 1:16 PM [facility] 56 Blood Venous blood specimen / Unknown Venipuncture / Unknown 07/17/2023 1:12 PM EST 07/17/2023 1:12 PM EST Laura Bedoya MD LAB BLOOD [facility] [address] [place] [address] * (ABNORMAL) CBC (07/17/2023 1:12 PM EST) WBC 7.42 4.00 - 10.80 K/uL 07/17/2023 1:16 PM [facility] 56 RBC 4.55 3.85 - 5.15 M/uL 07/17/2023 1:16 PM [facility] 56 HGB 11.2(L) 12.0 - 15.3 g/dL 07/17/2023 1:16 PM [facility] 56 HCT 38.0 36.0 - 45.2 % 07/17/2023 1:16 PM [facility] 56- MCV 83.5 81.5 - 97.5 fL 07/17/2023 1:16 PM [facility] 56- MCH 24.6 27.0 - 34.0 pg 07/17/2023 1:16 PM [facility] 56- MCHC 29.5 32.0 - 36.0 g/dL 07/17/2023 1:16 PM [facility] 56- RDW 27.2 11.5 - 15.5 % 07/17/2023 1:16 PM [facility] 56 PLT 539(H) 140 - 400 K/uL 07/17/2023 1:16 PM [facility] 56 MPV 10.2 6.6 - 11.1 fL 07/17/2023 1:16 PM [facility] 5602 Blood Venous blood specimen / Unknown Venipuncture / Unknown 07/17/2023 1:12 PM EST 07/17/2023 1:12 PM EST Sanchezjosh Bedoya MD LAB BLOOD [facility] [address] [place] [address] documented in this encounter Visit Diagnoses Diagnosis Iron deficiency anemia, unspecified iron deficiency anemia type- Primary documented in this encounter Advance Directives Latest Code Status [...] the patient have Health Care Power of Manufacturing Plant Controller? No Care Teams Aircraft Captain Relationship Specialty Start Date End Date Jeremiah Rodas DO [address] [place] [address] PCP - General Family Medicine 12/17/20 documented as of this encounter
--- OUTSIDE RECORDS SUMMARY | 2023-08-09 22:07 | External Medical Summary | Summary of Care ---
Author Name Unknown Organization [facility] Address [address] [facility] [place] [address] Phone [phone] Care Team Providers Care Mail Order Biller Name Role Phone Jeremiah Rodas DO Primary Care Provider [phone] Reason for Visit * Reason Comments Treatment Monoferric * Episode Based Medications (Routine) - Authorized Specialty Diagnoses / Procedures Referred By Controseann t Referred To Contact Diagnoses Other iron deficiency anemias Procedures MA INJ. FE DERISOMALTOSE 10 MG Laura Bedoya MD [address] [place] [facility] [place] [address] Anc Hem/Onc [facility] [address] [place] [address] Referral ID Status Reason Start Date Expiration Date V isits Requested Visits Authorized [id number] Authorized 06/19/2023 06/19/2024 999 [id number] Encounter Details Date Type Department Care Team (Latest Contact Info) Description 06/27/2023 8:00 AM EST Hem/Onc Treatment Hematology/Oncology Treatment, [facility] [address] [place] [address] [facility], Chair3 Hem Onc [address] [place] [address] [place] [address] Other iron deficiency anemias* Allergies Active Allergy Reactions Criticality Noted Date Comments Desmopressin 06/14/2004 flushing w/ rx and feeling throat was closing 2003 Trazodone Other (Please comment) 03/16/2015 Breathing difficulties documented as of this encounter (statuses as of 07/18/2023) Medications Medication Sig Dispensed Refills Start Date [...] as of this encounter (statuses as of 07/18/2023) Active Problems Problem Noted Date Diagnosed Date [...] replacement status 08/31/2011 Overview: Right knee , -2010 Hx of skin malignancy 05/04/2011 Overview: Hx Basal Cell Carcinoma left upper chest Dyslipidemia, goal LDL below 130 04/07/2010 Allergic rhinitis 01/18/2009 ADVANCE DIRECTIVE INFORMATION 05/03/2005 Overview: No, Advance Directive brochure given to patient at prior appointment. 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 Coagulation disorder 06/14/2004 Overview: platelet dysfunction History of migraine 01/08/2002 Overview: 04/15/2020 no Sx 10/30/2018 no sign headaches documented as of this encounter (statuses as of 07/18/2023) Resolved Problems Problem Noted Date Diagnosed Date [...] as of this encounter (statuses as of 07/18/2023) Immunizations Name Administration Dates Next Due HEP [...] Sign Reading Time Taken Comments Blood Pressure 130/78 06/27/2023 8:09 AM EST Pulse 85 06/27/2023 8:09 AM EST Temperature 36.7 C (98.1 F) 06/27/2023 8:09 AM ES T Respiratory Rate 18 06/27/2023 8:09 AM EST Oxygen Saturation - - Inhaled Oxygen Concentration - - Weight - - Height - - Body Mass Index - - documented in this encounter Functional Status Functional [...] No 10/24/2021 documented as of this encounter Nursing Notes * Alia Bueno RN - 06/27/2023 9:25 AM EST [facility] Care Plan ID is not set. 06/27/2023 Safety and Risk for Injury Patient will remain free from injury. Assess patient's risk for falls per policy. Encourage activity as ordered per policy. Ensure appropriate safety devices are available. Implement fall prevention plan of care per policy. Include patient and caregiver in decisions related to safety. Perform safety rounds per policy. Provide and maintain safe environment. Goals: Pt will not fall at infusion center. Possible barriers to meeting goals: Ambulating with IV pole. Stability of the patient: Moderately stable - low risk of patient condition declining or worsening Summary regarding today's goals: Met: Pt did not fall at infusion center. Alia Bueno RN * Tanya Mayberry LPN - 06/27/2023 9:12 AM EST Tolerated infusion well. Patient left IVC by ambulating. Unaccompanied. Voiced no complaints. Tanya Mayberry LPN 06/27/2023 9:13 AM * Tanya Mayberry LPN - 06/27/2023 8:10 AM EST Pt in bay 11. Here for monoferric infusion and lab draw. documented in this encounter Plan of Treatment Upcoming Encounters Date Type Department Care Team (Late st Contact Info) Description 10/12/2023 10:30 AM EDT Laboratory Laboratory, [facility] [address] [place] [address] [facility], Lab [address] [place] [address] 10/15/2023 9:00 AM EDT Office Visit Hematology/Oncology [employer] [address] [facility] [place] [phone] Laura Bedoay MD [address] [facility] [place] [address] Scheduled Procedures Name Priority Associated Diagnoses Date/Ti [...] Screening 07/28/2020 07/29/2019 COVID-19 Vaccine (1 - 2023-24 season) 2023 Influenza Vaccine (FLU shot) (#1) [...] 12/19/2026 12/19/2016, 09/20/2006 Lipid Panel 12/28/2026 12/28/2021, 03/0 01/2017, 09/08/2015, Additional history exists Pneumococcal Vaccine: [...] this encounter Medical Devices Implanted Type Area Cone Baker Machine Device Identifier Shelf Expiration Date Model / Serial / Lot Duraclip 16mm Xlg Repostn - [id number] Implanted:Qty: 1 on 04/19/2022 by Ab Moreno DO at ENDOSCOPY [facility] [employer] [id number] 11/27/2023 [id number] 5W / / [id number] documented as of this encounter Procedures Procedure Name Priority Date/Time Associated Diagnosis Comments DIFFERENTIAL, AUTOMATED STAT 06/27/2023 8:23 AM EST Other iron deficiency anemias CBC STAT 06/27/2023 8:23 AM EST Other iron deficiency anemias CBC STAT 06/27/2023 8:23 AM EST Other iron deficiency anemias DIFFERENTIAL, TECHNOLOGIST REVIEW Routine 06/27/2023 8:23 AM EST Other iron deficiency anemias documented in this encounter Results * (ABNORMAL) DIFFERENTIAL, TECHNOLOGIST REVIEW (06/27/2023 8:23 AM EST) Target Cells Moderate(A ) None Seen 06/27/2023 9:08 AM EST [facility] Blood Venous blood specimen / Unknown Peripheral IV / Unknown 06/27/2023 8:23 AM EST 06/27/2023 8:26 AM EST Laura Bedoya MD [facility] [address] [place] [address] * (ABNORMAL) DIFFERENTIAL, AUTOMATED (06/27/2023 8:23 AM EST) WBC 6.48 4.00 - 10.80 K/uL 06/27/2023 9:08 AM EST [facility] Neutrophils % 45.0 40.0 - 75.0 % 06/27/2023 9:08 AM EST [facility] Lymphocytes % 36.1 18.0 - 42.0 % 06/27/2023 9:08 AM EST [facility] Monocytes % 13.3(H) 1.0 - 11.0 % 06/27/2023 9:08 AM EST [facility] Eosinophils % 4.3 0.0 - 6.0 % 06/27/2023 9:08 AM EST [facility] Basophils % 1.1 0.0 - 2.0 % 06/27/2023 9:08 AM EST [facility] Immature Granulocytes % 0.2 0.0 - 2.0 % 06/27/2023 9:08 AM EST LABORATORY GL Absolute Neutrophils 2.92 1.80 - 7.70 K/uL 06/27/2023 9:08 AM EST LABORATORY [facility] Absolute Lymphocytes 2.34 1.00 - 4.80 K/ul 06/27/2023 9:08 AM EST LABORATORY [facility] Absolute Monocytes 0.86 0.00 - 1.10 K/uL 06/27/2023 9:08 AM EST LABORATORY [facility] Absolute Eosinophils 0.28 0.00 - 0.70 K/uL 06/27/2023 9:08 AM EST LABORATORY [facility] Absolute Basophils 0.07 0.00 - 0.20 K/uL 06/27/2023 9:08 AM EST LABORATORY GL Absolute Immature Granulocytes 0.01 0.00 - 0.20 K/uL 06/27/2023 9:08 AM EST LABORATORY GL Blood Venous blood specimen / Unknown Peripheral IV / Unknown 06/27/2023 8:23 AM EST 06/27/2023 8:26 AM EST Laura Bedoya MD LAB [facility]OD [facility] [address] [address] * (ABNORMAL) CBC (06/27/2023 8:23 AM EST) WBC 6.48 4.00 - 10.80 K/uL 06/27/2023 8:43 AM EST LABORATORY GL RBC 3.51 3.85 - 5.15 M/uL 06/27/2023 8:43 AM EST LABORATORY GL HGB 7.8(L) 12.0 - 15.3 g/dL 06/27/2023 8:43 AM EST LABORATORY GL HCT 27.6(L) 36.0 - 45.2 % 06/27/2023 8:43 AM EST LABORATORY GL MCV 78.6 81.5 - 97.5 fL 06/27/2023 8:43 AM EST LABORATORY GL MCH 22.2 27.0 - 34.0 pg 06/27/2023 8:43 AM EST LABORATORY GL MCHC 28.3 32.0 - 36.0 g/dL 06/27/2023 8:43 AM EST LABORATORY [facility] RDW 18.8 11.5 - 15.5 % 06/27/2023 8:43 AM EST LABORATORY [facility] PLT 485(H) 140 - 400 K/uL 06/27/2023 8:43 AM EST LABORATORY [facility] MPV 10.4 6.6 - 11.1 fL 06/27/2023 8:43 AM EST LABORATORY GL nRBCs 1(H) <=0 /100 WBCs 06/27/2023 8:43 AM EST LABORATORY [facility] Blood Venous blood specimen / Unknown Peripheral IV / Unknown 06/27/2023 8:23 AM EST 06/27/2023 8:26 AM EST Laura Bedoya MD LAB [facility]LOOD [facility] [address] [place] [address] documented in this encounter Visit Diagnoses Diagnosis Other iron deficiency anemias- Primary documented in this encounter Administered Medications Inactive Administered Medications - up to 3 most recent administrations Medication Order MAR Action Action Date Dose Rate Site Ferric derisomaltose (Monoferric) 1,000 mg in NSS 250 mL ivpb 1,000 mg, IV Piggyback, ONCE, 1 dose, On Sun06/27/23 at 0845, Administer over 30 Minutes, DOSING GUIDELINES: For patient weight LESS THAN 50 kg: Dose 20 mg/kg For patient weight 50 Kg or greater: Dose 1000 mg +++ IVC for Tuesday 06/27 +++ Start Infusion 06/27/2023 8:28 AM EST 1,000 mg 500 mL/hr NSS infusion Intravenous, at 50 mL/hr, PRN, Starting on Sun06/27/23 at 0915, Until Sun06/27/23 at 1313, Maintenance line Rate Verify 06/27/2023 8:25 AM EST 50 mL/hr Start Infusion 06/27/2023 8:23 AM EST 50 mL/hr documented in this encounter Advance Directives Latest [...] the patient have Health Care Power of Certified Coder? No Care Teams Mail Order Biller Relationship Specialty Start Date End Date Jeremiah Rodas DO [address] [place] [address] PCP - General Family Medicine 12/17/20 documented as of this encounter
--- OUTSIDE RECORDS SUMMARY | 2023-08-09 22:07 | External Medical Summary | Summary of Care ---
Author Name Unknown Organization [facility] Address [address] [facility] [place] [address] Phone [phone] Care Team Providers Care Tile Roofer Name Role Phone RodasSatinder rodasn Nicanor Primary Care Provider + [phone] Reason for Visit * Reason Onset Date Comments Test Results Lab 07/17/2023 Encounter Details Date Type Department Care Team (Late st Contact Info) Description 07/17/2023 Telephone Hematology/Oncology Treatment, [place] [address] [place] [address] Laura Bedoya MD [address] [place] [address] Test Results Lab Allergies Active Allergy Reactions Criticality Noted Date Comments Desmopressin 06/14/2004 flushing w/ rx and feeling throat was closing 2003 Trazodone Other (Please comment) 03/16/2015 Breathing difficulties documented as of this encounter (statuses as of 07/20/2023) Medications Medication Sig Dispensed Refills Start Date [...] as of this encounter (statuses as of 07/20/2023) Active Problems Problem Noted Date Diagnosed Date [...] reductase mutation 2004 Overview: heterozygous for both [id number] and N9205R Coagulation disorder 06/14/2004 Overview: platelet dysfunction History of migraine 01/08/2002 Overview: 04/15/2020 no Sx 10/30/2018 no sign headaches documented as of this encounter (statuses as of 07/20/2023) Resolved Problems Problem Noted Date Diagnosed Date [...] as of this encounter (statuses as of 07/20/2023) Immunizations Name Administration Dates Next Due HEP [...] encounter Miscellaneous Notes * Telephone Encounter - Js Lai RN - 07/20/2023 1:24 PM EST Printed letter and recent CBCD and faxed to Dr. Fink per patient request. * Telephone Encounter - Bhargavi River RN - 07/18/2023 2:07 PM EST Per office note 07/17/23: "She is also scheduled for the knee surgery on 08/09/2023. If her blood counts are in acceptable range, there has no contraindication to proceed with surgery. " Dr Bedoya: please advise- from hematology perspective, is patient ok for surgery? * Telephone Encounter - Bhargavi River RN [...] Description 10/12/2023 10:30 AM EDT Laboratory Laboratory, [address] [place] [address] [facility], Lab [address] [place] [address] 10/15/2023 9:00 AM EDT Office Visit Hematology/Oncology [place] 200 [facility] [place] [address] Laura Bedoya MD 200 [facility] [place] [address] Scheduled Procedures Name Priority Associated Diagnoses Date/Ti [...] 12/19/2026 12/19/2016, 09/20/2006 Lipid Panel 12/28/2026 12/28/2021, 0301/2017, 09/08/2015, Additional history exists Pneumococcal Vaccine: Pediatrics [...] this encounter Medical Devices Implanted Type Area Crossbow Maker Device Identifier Shelf Expiration Date Model / Serial / Lot Duraclip 16mm Xlg Repostn - [id number] Implanted:Qty: 1 on 04/19/2022 by Ab Moreno DO at ENDOSCOPY [id number] 11/27/2023 DC023 5W / / [id number] documented as of this encounter Advance Directives [...] the patient have Health Care Power of Data Entry Email Processor? No Care Teams Tile Roofer Relationship Specialty Start Date End Date Jeremiah Rodas DO [facility] [address] PCP - General Family Medicine 12/17/20 documented as of this encounter
--- OUTSIDE RECORDS SUMMARY | 2023-08-09 22:07 | External Medical Summary | Summary of Care ---
Author Name Unknown Organization [facility] Address [address] [facility] [place] [address] Phone [phone] Care Team Providers Care Workforce Staffing Advisor Name Role Phone RodasSatinder rodasn Nicanor Primary Care Provider + [phone] Reason for Visit * Reason Onset Date Comments Test Results Lab 07/17/2023 Encounter Details Date Type Department Care Team (Late st Contact Info) Description 07/17/2023 Telephone Hematology/Oncology Treatment, [place] [address] [place] [address] Laura Bedoya MD [address] [place] [address] Test Results Lab Allergies Active Allergy Reactions [...] reductase mutation 2004 Overview: heterozygous for both C1875H and M7734V Coagulation disorder 06/14/2004 Overview: platelet dysfunction History [...] Description 10/12/2023 10:30 AM EDT Laboratory Laboratory, [facility] [address] [place] [phone] [facility], Lab [address] [place] [address] 10/15/2023 9:00 AM EDT Office Visit Hematology/Oncology [place] [address] [place] [address] Laura Bedoya MD 200 [place] [address] Scheduled Procedures Name Priority Associated Diagnoses Date/Ti [...] this encounter Medical Devices Implanted Type Area Workforce Advisor Device Identifier Shelf Expiration Date Model / Serial / Lot Duraclip 16mm Xlg Repostn - [id number] Implanted:Qty: 1 on 04/19/2022 by Ab Moreno DO at ENDOSCOPY [employer] [id number] 11/27/2023 DC023 5W / / [id number] documented as of this encounter Advance Directives [...] the patient have Health Care Power of Wide Area Network Systems Administrator? No Care Teams Workforce Staffing Advisor Relationship Specialty Start Date End Date Jeremiah Rodas DO [address] [facility] [place] [address] PCP - General Family Medicine 12/17/20 documented as of this encounter
--- OUTSIDE RECORDS SUMMARY | 2023-08-09 22:07 | External Medical Summary ---
Author Name Unknown Address Unknown Organization [facility] [address] [facility] [address] Laboratory Report Ordering Provider Test Date Status MED RAMIREZ 07/17/2023 13:12:23 Final Observation Date Value Abnormality Reference (Units ) Status SYNC LEUKOCYTES IN BLOOD BY AUTOMATED COUNT 07/17/2023 13:12:23 7.42 4.00-10.80 (K/uL) Final Segs 07/17/2023 13:12:23 43.1 40.0-75.0 (%) Final Lymphs % 07/17/2023 13:12:23 39.1 18.0-42.0 (%) Final Monos 07/17/2023 13:12:23 12.9 Above high normal 1.0-11.0 (%) Final Eosinophils 07/17/2023 13:12:23 3.4 0.0-6.0 (%) Final Basos 07/17/2023 13:12:23 1.5 0.0-2.0 (%) Final Absolute Segs 07/17/2023 13:12:23 3.20 1.80-7.70 (K/uL) Final Lymphs, absolute 07/17/2023 13:12:23 2.90 1.00-4.80 (K/ul) Final Monos, Abs 07/17/2023 13:12:23 0.96 0.00-1.10 (K/uL) Final Eos, Abs 07/17/2023 13:12:23 0.25 0.00-0.70 (K/uL) Final Basos, Abs 07/17/2023 13:12:23 0.11 0.00-0.20 (K/uL) Final Performing Location [facility] [address] [place] [address]
--- OUTSIDE RECORDS SUMMARY | 2023-08-09 22:07 | External Medical Summary | Summary of Care ---
Author Name Unknown Organization [facility] Address [address] [facility] [place] [address] Phone [phone] Care Team Providers Care Automatic Brine Mixer Operator Name Role Phone Rodas, Jeremiah Nicanor Primary Care Provider + [phone] Reason for Visit * Reason Comments Outpatient Testing Encounter Details Date Type Department Care Team (Late st Contact Info) Description 07/17/2023 11:20 AM EST Laboratory Laboratory [facility] [address] [place] [phone] [place], Lab Scenery [address] [place] [address] Arrived Allergies Active Allergy Reactions Criticality Noted Date [...] reductase mutation 2004 Overview: heterozygous for both L3648R and R7987H Coagulation disorder 06/14/2004 Overview: platelet dysfunction History [...] No 10/24/2021 documented as of this encounter Plan of Treatment Upcoming Encounters Date Type Department Care Team (Late st Contact Info) Description 10/12/2023 10:30 AM EDT Laboratory Laboratory, [facility] [address] [place] [address] [facility], Lab [address] [facility] [place] [address] 10/15/2023 9:00 AM EDT Office Visit Hematology/Oncology [place] 200 [facility] [place], [place] [address] Laura Bedoya MD [address] [place] [address] Scheduled Procedures Name Priority Associated Diagnoses Date/Ti [...] 04/15/2020 Depression Screening 07/28/2020 07/29/2019 COVID-19 Vaccine ( - season) 2023 Influenza Vaccine (FLU shot) (#1) 2023 Mammogram 03/19/2024 03/19/2023, 0808/2021, 01/11/2021, Additional history exists COLONOSCOPY-EVERY 3 YRS [...] this encounter Medical Devices Implanted Type Area Appetizer Packer Device Identifier Shelf Expiration Date Model / Serial / Lot Duraclip 16mm Xlg Repostn - [id number] Implanted:Qty: 1 on 04/19/2022 by Ab Moreno DO at ENDOSCOPY [facility] [id number] 11/27/2023 DC023 5W / / [id number] documented as of this encounter Advance Directives [...] the patient have Health Care Power of Office Bookkeeper? No Care Teams Automatic Brine Mixer Operator Relationship Specialty Start Date End Date Jeremiah Rodas DO [address] [place] [address] PCP - General Family Medicine 12/17/20 documented as of this encounter
--- OUTSIDE RECORDS SUMMARY | 2023-08-09 22:07 | External Medical Summary ---
Author Name Unknown Address Unknown Organization [facility] [place] [address] Laboratory Report Ordering Provider Test Date Status MED RAMIREZ 07/17/2023 13:12:23 Final Observation Date Value Abnormality Reference (Units ) Status WBC, Total 07/17/2023 13:12:23 7.42 4.00-10.8 0 (K/uL) Final RBC 07/17/2023 13:12:23 4.55 3.85-5.15 (M/uL) Final Hemoglobin 07/17/2023 13:12:23 11.2 Below low normal 12 .0-15.3 (g/dL) Final HCT 07/17/2023 13:12:23 38.0 36.0-45.2 (%) Final MCV 07/17/2023 13:12:23 83.5 81.5-97.5 (fL) Final MCH 07/17/2023 13:12:23 24.6 27.0-34.0 (pg) Final MCHC 07/17/2023 13:12:23 29.5 32.0-36.0 (g/dL) Final RDW 07/17/2023 13:12:23 27.2 11.5-15.5 (%) Final Platelets 07/17/2023 13:12:23 539 Above high normal 14 0-400 (K/uL) Final MPV 07/17/2023 13:12:23 10.2 6.6-11.1 ( fL) Final Performing Location [facility] [place] [address]
[2023-08-10 06:27] LABS: Hematocrit (blood only) 33.8 % (37.0-47.0); Hemoglobin 10.9 g/dl (12.0-16.0); Mean Corpuscular Hgb Conc 32.2 g/dL (32.0-36.0); Mean Corpuscular Volume 80.5 fL (80.0-100.0); Mean Platelet Volume 11.1 fL (9.4-12.4); Platelet Count 498 K/uL (130-400); White Blood Count 16.43 K/ul (4.8-10.8)
[2023-08-10 06:58] LABS: BUN Creatinine Ratio 22.4 (10-20); Calcium 8.2 mg/dl (8.6-10.3); Creatinine Clr Calc Pharmacy 122.9 ml/min; Est GFR (African American) 128.9 ml/min; Est GFR (Non-African American) 111.2 ml/min; Potassium 3.7 mmol/L (3.5-5.1)
--- NOTE | 2023-08-10 07:12 | Orthopedic Progress Note ---
Date of Service August 10, 2023 Assessment & Plan (1) Primary osteoarthritis of left knee: Plan: Postop day #1 left total knee arthroplasty -PT/OT -Pain management as written -DVT prophylaxis: SCDs, teds, aspirin 81 mg twice daily -A.m. labs: Leukocytosis, likely reactive due to surgical stress versus perioperative steroids. Hemoglobin 10.9, improved from preop which was 10. Patient is asymptomatic. -Discharge planning: Plan on discharge home with outpatient therapy. Will monitor her Hemovac output through the morning. If slows down plan on discharge home today versus tomorrow. Admission and Anticipated Discharge Date Admission Date: August 09, 2023 Subjective Patient is postop day 1 left total knee. She is feeling well overall this morning. Mild pain but is controlled. No other complaints. Denies chest pain, shortness of breath, nausea/vomiting/diarrhea, headaches or dizziness. Review of Systems Review of Systems: All systems reviewed & are unremarkable except as noted in Subjective Physical Exam Physical Exam: Left knee: Dressing is clean, dry, intact. Toes are mobile with dorsiflexion. No calf tenderness. Able to straight leg raise. Distally neurovascular status and sensation is grossly intact. Hemovac output to 225cc over the last shift. Results & Data Vital Signs (Past 12 Hours) Vital Signs Temp Pulse Resp BP Pulse Ox O2 Del Method 08/10/23 02:54 36.8 C 74 16 150/83 H 97 Room Air 08/09/23 22:39 36.6 C 87 16 135/79 95 Room Air Laboratory Results Lab Results 08/10/23 Range/Units 05:34 WBC 16.43 H (4.8-10.8) K/ul RBC 4.20 (4.20-5.40) M/uL Hgb 10.9 L (12.0-16.0) g/dl Hct 33.8 L (37.0-47.0) % MCV 80.5 (80.0-100.0) fL MCH 26.0 (25.0-34.0) pg MCHC 32.2 (32.0-36.0) g/dL Plt Count 498 H (130-400) K/uL MPV 11.1 (9.4-12.4) fL Sodium 138 (136-145) mmol/L Potassium 3.7 (3.5-5.1) mmol/L Chloride 104 (98-107) mmol/L Carbon Dioxide 28 (21-32) mmol/L Anion Gap 6 (3-11) BUN 11 (6-23) mg/dl Creatinine 0.49 L (0.6-1.2) mg/dl Est Cr Clr Drug Dosing 122.9 ml/min Est GFR ( Amer) 128.9 ml/min Est GFR (Non-Af Amer) 111.2 ml/min BUN/Creatinine Ratio 22.4 H (10-20) Glucose 115 H (70-99(Fasting)) mg/dl Calcium 8.2 L (8.6-10.3) mg/dl
[2023-08-10] MEDS: PYRIDOXINE HCL 50 MG TAB PO SCH (07:16)
[2023-08-10] MEDS: FOLIC ACID 1 MG TAB PO SCH (07:17)
[2023-08-10] MEDS: MULTIVITAMIN TAB PO SCH (07:17)
[2023-08-10] MEDS ORDERED: NON-FORMULARY MEDICATION (Potassium 99 mg Tablet) PO SCH (09:00)
[2023-08-10] MEDS ORDERED: NON-FORMULARY MEDICATION (Multivitamin Tablet) PO SCH (09:00)
--- NOTE | 2023-08-10 16:24 | Hospitalist Consultation ---
Date of Consultation August 10, 2023 Assessment & Plan (1) Primary osteoarthritis of left knee: - Left total knee arthroplasty performed by Dr. Fink on 08/09/2023 - Pain management, DVT prophylaxis, activity levels, and home med reconciliation per primary team (2) Anemia: - Acute blood loss anemia post-operatively, not requiring transfusion - Patient is hemodynamically stable Plan Patient is ready for discharge from a medical perspective. Medicine will sign off now, please contact with any future questions or concerns. History of Present Illness Reason for Consultation: Medical management Requesting Physician: Micky Fink MD Attending Physician: Micky Fink MD History of Present Illness Patient had left knee arthroplasty due to chronic progressive osteoarthritis in the left knee on 08/09/2023 Dr. Fink. Patient states that her pain is well- managed and has no complaints at this time. She denies chest pain, shortness of breath, dizziness, lightheadedness, abdominal pain, nausea/vomiting, or urinary symptoms. Patient remains medically stable and is cleared for discharge from a medical perspective. Medicine will sign off at this time. Allergies Allergy/AdvReac Type Severity Reaction Status Date / Time trazodone Allergy Intermediate congestion Verified 07/12/23 10:17 desmopressin Allergy Mild THROAT Verified 07/12/23 10:17 SWELLS AND REDNESS - TOLERATES W/ BENADRYL Home Medications Medication Instructions Recorded Confirmed Type folic acid 1 mg tablet 1 mg PO QAM 05/02/22 08/09/23 History pyridoxine (vitamin B6) 50 mg 50 mg PO QAM 05/02/22 08/09/23 History tablet buspirone 10 mg tablet 10 mg PO BID 05/01/23 08/09/23 History conjugated estrogens 1.25 mg 1.25 mg PO QPM 05/01/23 08/09/23 History tablet (Premarin) cyanocobalamin (vitamin B-12) 1,000 mcg PO WK 05/01/23 08/09/23 History 1,000 mcg tablet (Vitamin B-12) multivitamin 1 tab PO QAM 05/01/23 08/09/23 History omeprazole 40 mg capsule,delayed 40 mg PO BID 05/01/23 08/09/23 History release sertraline 50 mg tablet 50 mg PO QPM 05/01/23 08/09/23 History potassium 99 mg tablet 99 mg PO DAILY 05/04/23 08/09/23 History zinc 1 tab PO BID 05/04/23 08/09/23 History acetaminophen 500 mg tablet 1,000 mg (2 x 500 mg) PO Q8 #60 08/10/23 Rx (Tylenol Extra Strength) tabs aspirin 81 mg tablet,delayed 81 mg PO BID #60 tabs 08/10/23 Rx release oxycodone 5 mg tablet 5 - 10 mg (1 - 2 x 5 mg) PO 08/10/23 Rx .Q4h-6h PRN pain #30 tabs Patient History Medical History Anemia Following with [facility] heme Last transfusion 06/18/23 Getting current iron infusions Anxiety Chronic pain History of COVID-19 2020, 2021 - symptoms fully resolved History of gastric ulcer 2020 or 2021 Osteoarthritis SBO (small bowel obstruction) hx of x 3 total, 05/01/23 [place] [facility] --> transferred to [place] for surgery. Thrombocytosis Will be following with [facility] heme 07/17/23 to discuss further Surgical History H/O dilation and curettage H/O resection of small bowel x3. Most recent 05/02/23 SBO. 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 History of bunionectomy left great toe History of cholecystectomy History of colonoscopy History of esophagogastroduodenoscopy (EGD) History of partial knee replacement right History of repair of hiatal hernia History of tonsillectomy and adenoidectomy 1974 History of total knee replacement right > after the partial went bad Hx of gastric bypass [facility] - 2011 Hx of sigmoidoscopy Status post total abdominal hysterectomy 2004 Family History Grandmother (Maternal) Breast cancer Grandfather (Maternal) Cancer Mother Clotting disorder Diabetes Sister Clotting disorder Other No pertinent family history Social History Smoking Status: Never smoker Second Hand Exposure: No; Do You Dip or Chew Tobacco: No; Tobacco Cessation Education Requested by Patient: No Hx Alcohol Use: Yes Hx Substance Use: No Preferred Language: [place] Communication Ability: Effective Visual Impairment: No Limitations It Sales Executive Required: No Beliefs That Will Affect Care: None Current Living Situation: Spouse current occupation: [employer] Other Information That Helps Us Care for You: No Feels Safe at Home: Yes Safety Concerns: Feels Safe At This Time during the past year weight has: remained stable Assistive Devices: Walker Physical Exam Physical Exam: General: No acute distress, nondiaphoretic, well-developed, well-nourished. Skin: The skin was without rashes, erythema, edema, or bruising. Cardiac: Regular rate and rhythm without murmurs gallops or rubs. Pulm: Clear to auscultation bilaterally without wheezes, rales or rhonchi. No retractions or accessory muscle use. Abdominal: Positive bowel sounds x 4. Soft, nontender, without masses or organomegaly. No guarding or rebound tenderness. Neuro: A&O x3. No focal neurological deficits. Extremities: Left knee wrapped in dressingclean, intact, dry. Adequate perfusion to distal left lower extremity. Toes are mobile with dorsiflexion. Hemovac in place. Results & Data Results & Data Vital Signs (Past 12 Hours) Vital Signs Temp Pulse Pulse Resp BP BP Pulse Ox 08/10/23 15:26 36.6 C 75 18 142/83 H 97 08/10/23 11:34 36.7 C 82 18 126/84 97 08/10/23 07:50 36.6 C 76 15 124/74 97 O2 Del Method 08/10/23 15:26 Room Air 08/10/23 11:34 Room Air 08/10/23 07:50 Room Air Laboratory Results Reviewed CBC Reviewed BMP PG Care Time/CCT Total # of Minutes Spent Total Time Spent with Patient: Total time spent is greater than 50% in coordination of care (as documented) at patient's floor/unit and/or counseling patient: Coding Level of Care Code 87905 IN/OBS CONSULT LVL 3,45M Diagnoses Primary osteoarthritis of left knee M17.12 Anemia D64.9
[2023-08-10] MEDS: ONDANSETRON INJ 2 MG/ML 2 ML VIAL IV PRN (17:21)
--- NOTE | 2023-08-11 09:49 | Orthopedic Progress Note ---
Date of Service August 11, 2023 Assessment & Plan (1) Status post left knee replacement: Plan: 52 yo female stable POD #2 s/p left TKA 1. Med management 2. DVT prophylaxis- ASA, SCDs 3. PT/OT 4. D/C planning- home w/ OPPT Admission and Anticipated Discharge Date Admission Date: August 09, 2023 Subjective Pt resting in bed, pain controlled, denies complaints Physical Exam Physical Exam: Dressing/drain d/c'd, ANISH in place, toes mobile, NVI, calves soft, NT Results & Data Vital Signs (Past 12 Hours) Vital Signs Temp Pulse Resp BP Pulse Ox O2 Del Method 08/11/23 07:45 36.9 C 75 16 124/78 94 Room Air
--- NOTE | 2023-08-12 07:52 | Discharge Summary ---
Date of Service August 12, 2023 Admission HPI Per Admitting Provider 52-year-old female with past medical history significant for small bowel obstruction who presents with ongoing left knee pain. Pain is interfering with her daily activities. She has failed conservative measures and would like to proceed with knee replacement. She does have a previous right knee replacement. Patient denies headaches, sweats, fevers, chills, double vision, blurred vision, cough, sore throat, dysphagia, chest pain, sob, wheezing, n/v/d/c, numbness, tingling, fatigue, urinary symptoms, mood disorders. ROS positive for left knee pain and stiffness. Admission Exam Per Admitting Provider Constitutional: well developed and well nourished; no acute distress Eyes: PERRL, conjunctivae normal, anicteric sclerae ENMT: external ear and nose normal, oropharynx normal Neck: trachea midline, no thyromegaly Respiratory: normal respiratory effort, lungs clear to auscultation Cardiovascular: RRR, no murmur, no edema Musculoskeletal: Left knee: Varus alignment. Mild effusion. Tenderness medial joint line. Positive Rita's. Stable valgus and varus stress test. Range of motion 0 to 130 degrees. Skin: no rashes, warm and dry Neurologic: patellar DTR's 2+ bilat, sensation intact Psychiatric: A+Ox3, euthymic affect Principal Diagnosis Left knee osteoarthritis Discharge Exam Physical Exam: Dressing/drain d/c'd, ANISH in place, toes mobile, NVI, calves soft, NT Discharge Data Allergies Allergy/AdvReac Type Severity Reaction Status Date / Time trazodone Allergy Intermediate congestion Verified 07/12/23 10:17 desmopressin Allergy Mild THROAT Verified 07/12/23 10:17 SWELLS AND REDNESS - TOLERATES W/ BENADRYL Consultations 08/06/23 15:21 Consult Hospitalist Routine Procedures Performed Operation Date: 08/09/23 07:00 Actual Procedures p Left Total Knee Arthroplasty - Micky Fink MD Ordered Studies 08/09/23 05:00 US - OR guided needle placemen Routine Hospital Course (1) Status post left knee replacement: 52 yo female stable POD #2 s/p left TKA 1. Med management 2. DVT prophylaxis- ASA, SCDs 3. PT/OT 4. D/C planning- home w/ OPPT Postop day #1 left total knee arthroplasty -PT/OT -Pain management as written -DVT prophylaxis: SCDs, teds, aspirin 81 mg twice daily -A.m. labs: Leukocytosis, likely reactive due to surgical stress versus perioperative steroids. Hemoglobin 10.9, improved from preop which was 10. Patient is asymptomatic. -Discharge planning: Plan on discharge home with outpatient therapy. Will monitor her Hemovac output through the morning. If slows down plan on discharge home today versus tomorrow. Lab Results 08/10/23 Range/Units 05:34 WBC 16.43 H (4.8-10.8) K/ul RBC 4.20 (4.20-5.40) M/uL Hgb 10.9 L (12.0-16.0) g/dl Hct 33.8 L (37.0-47.0) % MCV 80.5 (80.0-100.0) fL MCH 26.0 (25.0-34.0) pg MCHC 32.2 (32.0-36.0) g/dL Plt Count 498 H (130-400) K/uL MPV 11.1 (9.4-12.4) fL Sodium 138 (136-145) mmol/L Potassium 3.7 (3.5-5.1) mmol/L Chloride 104 (98-107) mmol/L Carbon Dioxide 28 (21-32) mmol/L Anion Gap 6 (3-11) BUN 11 (6-23) mg/dl Creatinine 0.49 L (0.6-1.2) mg/dl Est Cr Clr Drug Dosing 122.9 ml/min Est GFR ( Amer) 128.9 ml/min Est GFR (Non-Af Amer) 111.2 ml/min BUN/Creatinine Ratio 22.4 H (10-20) Glucose 115 H (70-99(Fasting)) mg/dl Calcium 8.2 L (8.6-10.3) mg/dl Total Time Total Time Spent Total Time Spent (In Minutes): 20 Discharge Plan Discharge Items Patient Disposition: Home - Self-Care Reason For Visit: Left Knee Osteoarthritis Discharge Diagnosis: Left knee osteoarthritis Activity: Per Instructions section Non-emergency contact: Surgeon Call non-emergency contact if: you have any medication questions, your pain is not controlled, your pain is concerning for you, you have a fever, your temperature is above 101, your wound has increased redness and your wound has increased drainage Follow-up/Referrals: Jeremiah Rodas, [Primary Care Provider] - Diet: Regular Addtl Attending Provider Instructions: ACTIVITY RECOMMENDATIONS: SELF CARE INSTRUCTIONS AFTER TOTAL KNEE REPLACEMENT A. You may need to continue a physical therapy program after discharge from the hospital. There are several options available to you. Your doctor will assist you in selecting the best one for you. 1. An out-patient facility 2 to 3 times a week for therapy or home therapy. 2. Continue working on all exercises taught to you in the hospital. Your goals should be to increase bending of your knee to 90 degrees and beyond and to fully straighten your knee. B. You may progress at your own pace from walking with a walker or crutches to a cane; then to no assistive devices. C. Make walking a part of your daily routine. Be up as much as comfortable with rest periods throughout the day. Rest with leg elevation is very important. Use the ice wrap frequently for the first 3-4 weeks. D. There are no restrictions on activities. You may ride in a car, shop, participate in brand advocate and all social activities. E. Wear the long elastic stockings (PARTH hose) 20 hours a day for 2 weeks after surgery. They can be removed several times a day for laundering and for a bath. F. You may shower, no tub baths until cleared by your doctor. SPECIAL CARE INSTRUCTIONS: VERY IMPORTANT TO READ AND REVIEW A. There are a few signs you need to watch for after you are home. Call [facility] if you notice any of the followin. Increased severe knee pain. Some pain is expected especially when you exercise. 2. Increased swelling in your leg or knee; pain or swelling of the calf muscle in either lower leg. 3. Any fluid drainage from the incision. 4. Shortness of breath or chest pain. B. Please call [facility] at if you have any concerns or questions about your operation or recovery. The doctor or his nurse will return your call promptly. C. You must take antibiotics before dental work, bladder, bowel or other surgery. Your doctor will provide you with a permanent care to carry describing this precaution. IMPORTANT: * REMEMBER TO TAKE ASPIRIN, 81 MG, TWICE DAILY FOR 4 WEEKS UNLESS OTHERWISE DIRECTED. THIS IS YOUR BLOOD THINNER. * HIGH RISK PATIENTS MAY BE PRESCRIBED A STRONGER BLOOD THINNER. THIS WILL BE PROVIDED AT DISCHARGE. * CALL IF INCREASED PAIN, REDNESS, DRAINAGE OR FEVER GREATER THAT 101. * WEAR PRATH HOSE 20 HOURS PER DAY FOR 2 WEEKS. There is a large suction dressing covering your incision. This will help pull any excess drainage from the wound and allow your incision to heal properly. You may shower with this if you can keep the unit outside of the shower. If any bleeding or leakage is noted please call your doctor's office. This will remain on your incision for 7 days and then should be removed. This can be done yourself or by the home nursing staff if applicable. The entire unit is disposable once removed. Once removed, keep incision clean and dry. If redness or drainage is noted, please call your surgeon. IF INCISION IS LEAKING THROUGH DRESSING, CALL THE OFFICE . FOLLOW UP VISIT: If appointment is not already scheduled: Please call [facility] to make a follow-up appointment for 2 weeks after your surgery at . Pending Studies at Discharge: No Stand-Alone Forms: My [facility] [employer], Smoking Cessation Medications and DC Order Prescriptions: New acetaminophen [Tylenol Extra Strength] 500 mg Tablet 1,000 mg PO Q8 Qty: 60 0RF aspirin 81 mg Tablet,Delayed Release (Dr/Ec) 81 mg PO BID Qty: 60 0RF oxycodone 5 mg Tablet 5 - 10 mg PO .Q4h-6h MDD 6 PRN (Reason: pain) Qty: 30 0RF Rx Instructions: Ongoing therapy, Dr. Fink supervising Continued pyridoxine (vitamin B6) 50 mg tablet 50 mg PO QAM folic acid 1 mg tablet 1 mg PO QAM potassium 99 mg Tablet 99 mg PO DAILY zinc Tablet,Chewable 1 tab PO BID omeprazole 40 mg capsule,delayed release(DR/EC) 40 mg PO BID buspirone 10 mg tablet 10 mg PO BID sertraline 50 mg tablet 50 mg PO QPM Premarin 1.25 mg tablet 1.25 mg PO QPM multivitamin Tablet 1 tab PO QAM cyanocobalamin (vitamin B-12) [Vitamin B-12] 1,000 mcg Tablet 1,000 mcg PO WK Discharge Orders: Discharge Order (Routine); Ordered 08/11/23 Ordered By: Dillon Llamas/Other Patient Handouts: Oxycodone Oral Tablet, Knee Replacement Total Dc Admission Data Admit Date/Time: 08/09/23 09:33 Attending Provider: Micky Fink Admit Provider: Micky Fink Primary Care Provider: Jeremiah Rodas Other Interventions: Discharge Summary Assessment (RN) Last Done: 08/11/23 10:25
[2023-08-13] MEDS ORDERED: CYANOCOBALAMIN (B-12) 500 MCG TABLET PO SCH (09:00)
== END 2023-08-11 12:46 | disposition home or self-care (01) ==
LOC: ASU 05:21 → PACUINP 05:21 → 3E 12:24